=== PATIENT | female | born 1930 | race Caucasian/White ===

== ENCOUNTER 2018-11-26 22:00 | Inpatient (IN) | payer OTHER ==
--- NOTE | 2018-11-26 22:04 | PDOC ---
History of Present Illness - General Chief Complaint: Shortness of Breath Stated Complaint: COUGH Time Seen by Provider: 11/26/18 22:04 History Source: EMS, Care Home Records Exam Limitations: Dementia - History of Present Illness Initial Comments: 11/26/18 22:11 88 year old female residing at [facility] on the [place] with PMH HTN atrial fibrillation s/p PPM on Coumadin, pacer, CAD, DM, hypothyroidism, depression, dementia, vitamin D deficiency, intestinal obstruction, diverticulitis, GERD, left total knee replacement, left femoral neck fracture BIBA to ED for dry cough , hypoxia to 85%. Pt was placed on O2 and hypoxia improved to 91%. Past History - Past Medical History Allergies/Adverse Reactions: Allergies Allergy/AdvReac Type Severity Reaction Status Date / Time iodine Allergy Verified 11/26/18 22:02 shellfish derived Allergy Verified 11/26/18 22:02 dye Allergy Uncoded 11/26/18 22:02 hairdye Allergy Uncoded 11/26/18 22:02 Home Medications: Ambulatory Orders Acetaminophen [Tylenol] 650 mg PO BID PRN 11/26/18 Albuterol 2.5/Ipratropium 0.5 [Duoneb -] 1 neb IH QID PRN 11/26/18 Amiodarone HCl [Cordarone -] 200 mg PO DAILY 11/26/18 Calcium Carbonate/Vitamin D3 [Calcium 500 mg Chewable Tablet] 1 each PO DAILY Docusate Sodium [Colace] 200 mg PO HS 11/26/18 Ergocalciferol [Drisdol Oral Solution -] 8,000 units PO DAILY 11/26/18 Guaifenesin [Robitussin] 5 ml PO BID 11/26/18 Levothyroxine [Synthroid -] 125 mcg PO DAILY 11/26/18 Mirtazapine [Remeron -] 7.5 mg PO HS 11/26/18 Polyethylene Glycol 3350 [Miralax (For Daily Use) -] 17 gm PO DAILY 11/26/18 Warfarin Sodium [Coumadin] 3 mg PO HS 11/26/18 Cardiac Disorders: Yes (atrial fib, pacemaker) Dementia: Yes Thyroid Disease: Yes (hypothyroid) - Suicide/Smoking/Psychosocial Hx Smoking Status: No Smoking History: Never smoked Number of Cigarettes Smoked Daily: 0 Hx Alcohol Use: No Drug/Substance Use Hx: No Review of Systems - Review of Systems Able to Perform ROS?: No Comments:: 11/26/18 22:43 Pt is unable to provide history secondary to dementia. EMS and [facility] records indicated positive for cough. *Physical Exam - Physical Exam Comments: 11/26/18 22:43 Constitutional: thin, laying in stretcher. HEENT: head is normocephalic, atraumatic. EOMI. PERRLA. Neck: supple. Full ROM. Heart: regular rhythm. no murmurs, rubs or gallops. Lungs: decreased breath sounds at the left base. bilateral rhonchi. no wheezing. no stridor. no labored breathing. no accessory muscle use. Abdomen: soft, nontender. normal bowel sounds. no rebound, guarding, masses. Extremities: peripheral pulses intact. no lower extremity edema. Neurological: CN 2-12 grossly intact. moves all four extremities. Psych: awake. nonverbal. does not follow commands. Skin: no sacral ulcer. ED Treatment Course - LABORATORY CBC & Chemistry Diagram: 11/26/18 22:29 11/26/18 22:28 Medical Decision Making - Medical Decision Making 11/26/18 22:45 88 year old female with above PMH BIBA to ED for hypoxia and dry cough. Initial Vital Signs Temp Pulse Resp BP Pulse Ox 99.1 F 125 H 26 H 118/63 90 L 11/26/18 22:02 11/26/18 22:02 11/26/18 22:02 11/26/18 22:02 11/26/18 22:02 Febrile - oral. 100.1 rectal temperature. Tachycardic. Tachypneic. No hypotension. Hypoxia on room air. -Satting 95% on 4L O2. Labs ordered: CBC, CMP, VBG, lactate, troponin, blood cultures, UA/UC, BNP Imaging ordered: CXR Medications ordered: tylenol IV, normal saline bolus 1000 cc, duonebs EKG performed at 2259: rate 80, atrial sensed-ventricularly paced, left axis, no acute ST changes. 11/26/18 22:51 CXR shows increased density at left base. Medications ordered: Vancomycin, Zosyn 11/26/18 23:13 CBC WBC 24.3 K/mm3 (4.0-10.0) H 11/26/18 22:29 RBC 3.67 M/mm3 (3.60-5.2) 11/26/18 22:29 Hgb 11.8 GM/dL (10.7-15.3) 11/26/18 22:29 Hct 36.6 % (32.4-45.2) 11/26/18 22:29 MCV 99.9 fl (80-96) H 11/26/18 22:29 MCH 32.3 pg (25.7-33.7) 11/26/18 22: MCHC 32.3 g/dl (32.0-36.0) 11/26/18 22: RDW 13.3 % (11.6-15.6) 11/26/18 22:29 Plt Count 197 K/MM3 (134-434) D 11/26/18 22:29 MPV 9.7 fl (7.5-11.1) D 11/26/18 22:29 Absolute Neuts (auto) 21.0 K/mm3 (1.5-8.0) H 11/26/18 22:29 Neutrophils % 86.7 % (42.8-82.8) H 11/26/18 22:29 Lymphocytes % 6.5 % (8-40) L D 11/26/18 22:29 Monocytes % 5.7 % (3.8-10.2) 11/26/18 22: Eosinophils % 0.0 % (0-4.5) D 11/26/18 22: Basophils % 1.1 % (0-2.0) D 11/26/18 22: Nucleated RBC % 0 % (0-0) 11/26/18 22:29 Leukocytosis with left shift. No anemia. CMP Sodium 141 mmol/L (136-145) 11/26/18 22:28 Potassium 3.7 mmol/L (3.5-5.1) 11/26/18 22:28 Chloride 109 mmol/L (98-107) H 11/26/18 22:28 Carbon Dioxide 23 mmol/L (21-32) 11/26/18 22:28 Anion Gap 9 MMOL/L (8-16) 11/26/18 22:28 BUN 19 mg/dL (7-18) H 11/26/18 22:28 Creatinine 0.9 mg/dL (0.55-1.3) 11/26/18 22:28 Creat Clearance w eGFR 59.09 (>60) 11/26/18 22: Random Glucose 281 mg/dL (74-106) H 11/26/18 22:28 Calcium 8.4 mg/dL (8.5-10.1) L 11/26/18 22:28 Magnesium 2.2 mg/dL (1.8-2.4) 11/26/18 22: Total Bilirubin 0.3 mg/dL (0.2-1) 11/26/18 22: AST 14 U/L (15-37) L 11/26/18 22: ALT 20 U/L (13-61) 11/26/18 22: Alkaline Phosphatase 84 U/L (45-117) 11/26/18 22: Creatine Kinase 199 U/L (26-192) H 11/26/18 22: Troponin I < 0.02 ng/ml (0.00-0.05) 11/26/18: Total Protein 6.6 g/dl (6.4-8.2) 11/26/18: Albumin 2.7 g/dl (3.4-5.0) L 11/26/18: BNP 888. Lactic acidosis - 2.8 -Pt receiving IV fluids Urine Test Results Urine Color Yellow 11/26/18 22: Urine Appearance Cloudy 11/26/18: Urine pH 5.0 (5.0-8.0) 11/26/18: Ur Specific [place] 1.025 (1.010-1.035) 11/26/18 22: Urine Protein 1+ (NEGATIVE) H 11/26/18 22: Urine Glucose (UA) 2+ (NEGATIVE) H 11/26/18 22: Urine Ketones Trace (NEGATIVE) 11/26/18 22: Urine Blood 3+ (NEGATIVE) H 11/26/18 22: Urine Nitrite Positive (NEGATIVE) 11/26/18 22: Urine Bilirubin Negative (NEGATIVE) 11/26/18 22: Ur Leukocyte Esterase 1+ (NEGATIVE) H 11/26/18 22: WBC 5-10 -Vancomycin and Zosyn ordered Pt to be admitted for sepsis, pneumonia, lactic acidosis, UTI. *DC/Admit/Observation/Transfer Diagnosis at time of Disposition: Sepsis, Hypoxia, Lactic acidemia Leukocytosis Qualifiers: Leukocytosis type: unspecified Qualified Code(s): D72.829 - Elevated white blood cell count, unspecified Pneumonia Qualifiers: Pneumonia type: due to unspecified organism - Discharge Dispostion Condition at time of disposition: Guarded Decision to Admit order: Yes - Referrals - Patient Instructions - Post Discharge Activity
[2018-11-26] MEDS ORDERED: ACETAMINOPHEN 1000 MG/100 ML VIAL (NON FORMULARY) IVPB ONE (22:26)
[2018-11-26] MEDS ORDERED: ALBUTEROL SO4 2.5/IPRATROPIUM 0.5 INH SOL 3 ML VIAL.NEB. NEB ONE ×2 (22:26→22:29)
[2018-11-26] MEDS ORDERED: SODIUM CHLORIDE 0.9% 1000 ML INFUS.BAG IV ONE (22:26)
[2018-11-26] MEDS ORDERED: PIPERACILLIN/TAZOB 4.5 GM 4.5 GM in DEXTROSE 5%-WATER 100 ML IVPB ONE (22:29)
[2018-11-26] MEDS ORDERED: ACETAMINOPHEN INJECTION 100 ML IVPB ONE (22:29)
[2018-11-26] MEDS ORDERED: VANCOMYCIN 1 GM in D5W (PRE-DOCKED) 1,000 MG/250 ML IVPB ONE (22:29)
[2018-11-26 22:37] LABS: VENOUS PC02 36.1 mmHg (41-51); VENOUS PH 7.41 (7.31-7.41); VENOUS PO2 42.4 mmHg (30-40)
[2018-11-26] MEDS ORDERED: PIPERACILLIN/TAZOB 4.5 GM 4.5 GM/100 ML BAG IVPB ONE (22:39)
[2018-11-26 22:51] LABS: INR 1.81 (0.83-1.09); PROTHROMBIN TIME (PATIENT) 21.5 SEC (9.7-13.0)
[2018-11-26 22:54] LABS: ACTIVATED PTT 26.7 SECONDS (25.2-36.5)
[2018-11-26 23:05] LABS: BASO % 1.1 % (0-2.0); HEMATOCRIT 36.6 % (32.4-45.2); HEMOGLOBIN 11.8 GM/dL (10.7-15.3); LYMPH % 6.5 % (8-40); MCH 32.3 pg (25.7-33.7); MCHC 32.3 g/dl (32.0-36.0); MEAN CELL VOLUME 99.9 fl (80-96); MEAN PLT VOLUME 9.7 fl (7.5-11.1); MONO % 5.7 % (3.8-10.2); NEUT % 86.7 % (42.8-82.8); PLATELET COUNT 197 K/MM3 (134-434); RBC 3.67 M/mm3 (3.60-5.2); RDW 13.3 % (11.6-15.6)
[2018-11-26 23:05] LABS: ALBUMIN 2.7 g/dl (3.4-5.0); ALK PHOS 84 U/L (45-117); ANION GAP 9 MMOL/L (8-16); BILIRUBIN,TOTAL 0.3 mg/dL (0.2-1); BLOOD UREA NITROGEN 19 mg/dL (7-18); CALCIUM 8.4 mg/dL (8.5-10.1); CHLORIDE 109 mmol/L (98-107); CO2 23 mmol/L (21-32); CREATININE 0.9 mg/dL (0.55-1.3); GLUCOSE,RANDOM 281 mg/dL (74-106); MAGNESIUM 2.2 mg/dL (1.8-2.4); POTASSIUM 3.7 mmol/L (3.5-5.1); SGOT/AST 14 U/L (15-37); SGPT/ALT 20 U/L (13-61); SODIUM 141 mmol/L (136-145); TOT PROT 6.6 g/dl (6.4-8.2)
[2018-11-26 23:10] LABS: WHITE BLOOD COUNT 24.3 K/mm3 (4.0-10.0)
--- NOTE | 2018-11-26 23:14 | PDOC ---
Attending Attestation - HPI HPI: The patient is an 88 year old female, with a significant PMH of Afib (with pacemaker), CAD, dementia, hypothyroid, diabetes, intestinal obstruction due to diverticulitis (s/p colostomy placement and reversal), vitamin D deficiency, and GERD, who presents to the emergency department today BIBEMS from [facility] for cough, shortness of breath, and hypoxia.. As per EMS, patient was given a neb en route. ERA prior to arrival was 84. Patient is nonverbal at baseline. Patient was brought in for shortness of breath, crackles , and diffuse body warmth. Patient air room O2 is 91 at this time. Patient is DNR and DNI, confirmed by son at bedside. The patient denies chest pain, headache and dizziness. Denies fever, chills, nausea, vomit, diarrhea and constipation. Denies dysuria, frequency, urgency and hematuria. Allergies: Iodine, shellfish, dye, hair dye Past surgical history: PPM, Colostomy bag placement, colostomy bag reversal, and left total knee replacement Social history: No reported PCP: Dr. Lester Bowser 11/26/18 23:18 - Physicial Exam PE: GENERAL: +Hot to touch. +Nonverbal (baseline). HEAD: No signs of trauma EYES: PERRLA, EOMI, sclera anicteric, conjunctiva clear ENT: +Dry mucous membranes. Auricles normal inspection, hearing grossly normal, nares patent, oropharynx clear without exudates. NECK: Normal ROM, supple, no lymphadenopathy, JVD, or masses LUNGS: +Tachypnic. +Hypoxic. +Very coarse breath sounds bilaterally. +Crackles. No wheezes. HEART: +Tachycardic. Regular rhythm, normal S1 and S2, no murmurs, rubs or gallops ABDOMEN: Soft, nontender, normoactive bowel sounds. No guarding, no rebound. No masses EXTREMITIES: +Contracted lower extremities. Normal range of motion, no edema. No clubbing or cyanosis. No cords, erythema, or tenderness NEUROLOGICAL: Cranial nerves II through XII grossly intact. Normal speech, normal gait SKIN: Warm, Dry, normal turgor, no rashes or lesions noted. 11/26/18 23:19 - Medical Decision Making EXAM#: TYPE/EXAM: RESULT: [id number] RAD/CHEST X-RAY PORTABLE* Shortness of breath Impression: Questionable minimal left pleural effusion Reported By: Vasquez Walker MD 11/26/18 22:46 Documentation prepared by HOLLY Palmer, acting as emergency medical tech for Kylah Lee DO. 11/26/18 23:21 <Heather Lora - Last Filed: 11/26/18 23:21> - Resident Resident Name: Brisa Castelan - ED Attending Attestation I have performed the following: I have examined & evaluated the patient, The case was reviewed & discussed with the resident, I agree w/resident's findings & plan, Exceptions are as noted - Medical Decision Making 11/26/18 23:08 I, Dr. Kylah Lee DO, attest that this document has been prepared under my direction and personally reviewed by me in its entirety. I further attest, that it accurately reflects all work, treatment, procedures and medical decision -making performed by me. 11/26/18 23:09 a/p: 88yo female arrives hypoxic to 91%ra and sob/cough from [facility] [address] -pt is nonverbal at baseline -pt is a DNR/I, son at the bedside who confirms DNR/I -coarse bs -concern for pna -will start broad spectrum abx, xray, labs, ekg -will monitor and reassess -pt will need admission -PMD is Dr. Bowser 11/26/18 23:11 L sided infiltrate on xray elevated wbc pt with sepsis ivf hydration running abx ordered pt will need admission microblog sent to [facility] 11/27/18 00:06 case discussed with [facility] who accepts pt to service <Kylah Lee - Last Filed: 11/27/18 00:07> *DC/Admit/Observation/Transfer - Discharge Dispostion Decision to Admit order: Yes <Kylah Lee - Last Filed: 11/27/18 00:07> Diagnosis at time of Disposition: Sepsis, Leukocytosis, Pneumonia, Hypoxia - Discharge Dispostion Condition at time of disposition: Guarded - Referrals Referrals: Lester Bowser MD [Primary Care Provider] - - Patient Instructions - Post Discharge Activity Heart Score/ECG Review - ECG Intrepretation Comment:: 11/26/18 23:12 paced at 80, no acute findings <Kylah Lee - Last Filed: 11/27/18 00:07>
[2018-11-26] MEDS ORDERED: VANCOMYCIN 1 GRAM (PRE-DOCKED) 1,000 MG/250 ML BAG IVPB ONE (23:19)
[2018-11-26 23:47] LABS: URINE APPEARANCE Cloudy; URINE BILIRUBIN Negative (NEGATIVE); URINE COLOR Yellow; URINE GLUCOSE (UA) 2+ (NEGATIVE); URINE KETONE Trace (NEGATIVE); URINE LEUK ESTERASE 1+ (NEGATIVE); URINE NITRITE Positive (NEGATIVE); URINE PROTEIN 1+ (NEGATIVE); URINE UROBILINOGEN 0.2 mg/dL (0.2-1.0)
[2018-11-26 23:57] LABS: PLATELET ESTIMATE ADEQUATE
[2018-11-27] LABS: URINE BACTERIA MODERATE /hpf (NEGATIVE)
--- NOTE | 2018-11-27 00:06 | HP ---
CHIEF COMPLAINT: Sent from [place] for hypoxia PCP: Dr Lester Bowser HISTORY OF PRESENT ILLNESS: Pt nonresponsive. Information gathered from discussion with ED resident/ Attending as well as medical records. Pt is an 88 y/o lady who presents from [facility] with a significant past medical history of Afib (with pacemaker), CAD, dementia, hypothyroid, diabetes, intestinal obstruction due to diverticulitis (s/p colostomy placement and reversal), vitamin D deficiency, and GERD who presented to [facility] from [facility] after she was observed to desaturate on room air to 85% on room air. Patient was administered a nebulizer treatment en route to the ED. Patient is nonverbal at baseline. Upon initial presentation to the ED, ED staff noticed pt exhibited shortness of breath, crackles, and diffuse body warmth. Upon my examination, pt appeared in no acute distress and did not feel warm. Patient is reportedly DNR and DNI, ED staff confirmed at bedside with son. Allergies: Iodine, shellfish, dye, hair dye Past surgical history: PPM, Colostomy bag placement, colostomy bag reversal, and left total knee replacement PCP: Dr. Lseter Bowser ER course was notable for: (1) Vanc and Zosyn (2) Lactic Acid 2.8 (3) INR 1.81 HOME MEDICATIONS: Home Medications Medication Instructions Recorded Acetaminophen [Tylenol] 650 mg PO BID PRN 11/26/18 Albuterol 2.5/Ipratropium 0.5 1 neb IH QID PRN 11/26/18 [Duoneb -] Amiodarone HCl [Cordarone -] 200 mg PO DAILY 11/26/18 Calcium Carbonate/Vitamin D3 1 each PO DAILY 11/26/18 [Calcium 500 mg Chewable Tablet] Docusate Sodium [Colace] 200 mg PO HS 11/26/18 Ergocalciferol [Drisdol Oral 8,000 units PO DAILY 11/26/18 Solution -] Guaifenesin [Robitussin] 5 ml PO BID 11/26/18 Levothyroxine [Synthroid -] 125 mcg PO DAILY 11/26/18 Mirtazapine [Remeron -] 7.5 mg PO HS 11/26/18 Polyethylene Glycol 3350 [Miralax 17 gm PO DAILY 11/26/18 (For Daily Use) -] Warfarin Sodium [Coumadin] 3 mg PO HS 11/26/18 REVIEW OF SYSTEMS Unable to obtain PHYSICAL EXAMINATION Vital Signs - 24 hr 11/26/18 11/26/18 11/26/18 22:02 22:09 22:23 Temperature 99.1 F 100.1 F H Pulse Rate 125 H Pulse Rate [ Apical] Respiratory 26 H Rate Blood Pressure 118/63 O2 Sat by Pulse 90 L 92 L Oximetry (%) 11/26/18 22:39 Temperature Pulse Rate Pulse Rate [ 86 Apical] Respiratory 22 H Rate Blood Pressure O2 Sat by Pulse 95 Oximetry (%) GENERAL: Nonresponsive HEAD: Normal with no signs of trauma. LUNGS: Bibasilar rales HEART: Irregular, S1S2 ABDOMEN:Soft, No facial grimacing upon palpation. LOWER EXTREMITIES: Lower extremities contracted. No edema appreciated SKIN: No rashes or lesions appreciated Laboratory Results - last 24 hr 11/26/18 11/26/18 11/26/18 22:28 22:28 22:28 WBC RBC Hgb Hct MCV MCH MCHC RDW Plt Count MPV Absolute Neuts (auto) Neutrophils % Neutrophils % (Manual) Band Neutrophils % Lymphocytes % Lymphocytes % (Manual) Monocytes % Monocytes % (Manual) Eosinophils % Eosinophils % (Manual) Basophils % Basophils % (Manual) Nucleated RBC % Platelet Estimate PT with INR 21.50 H INR 1.81 H PTT (Actin FS) 26.7 VBG pH 7.41 POC VBG pCO2 36.1 L POC VBG pO2 42.4 H VBG HCO3 22.3 L VBG O2 Sat (Adiel) 76.1 VBG Base Excess -1.4 Sodium Potassium Chloride Carbon Dioxide Anion Gap BUN Creatinine Creat Clearance w eGFR Random Glucose Lactic Acid Calcium Magnesium Total Bilirubin AST ALT Alkaline Phosphatase Creatine Kinase Creatine Kinase Index CK-MB (CK-2) Troponin I B-Natriuretic Peptide Total Protein Albumin Urine Color Yellow Urine Appearance Cloudy Urine pH 5.0 Ur Specific [place] 1.025 Urine Protein 1+ H Urine Glucose (UA) 2+ H Urine Ketones Trace Urine Blood 3+ H Urine Nitrite Positive Urine Bilirubin Negative Urine Urobilinogen 0.2 Ur Leukocyte Esterase 1+ H Urine WBC (Auto) 5-10 Urine RBC (Auto) 5-10 U Epithel Cells (Auto) 2-5 Urine Bacteria (Auto) Moderate 11/26/18 11/26/18 11/26/18 22:28 22:28 22:28 WBC RBC Hgb Hct MCV MCH MCHC RDW Plt Count MPV Absolute Neuts (auto) Neutrophils % Neutrophils % (Manual) Band Neutrophils % Lymphocytes % Lymphocytes % (Manual) Monocytes % Monocytes % (Manual) Eosinophils % Eosinophils % (Manual) Basophils % Basophils % (Manual) Nucleated RBC % Platelet Estimate PT with INR INR PTT (Actin FS) VBG pH POC VBG pCO2 POC VBG pO2 VBG HCO3 VBG O2 Sat (Adiel) VBG Base Excess Sodium 141 Potassium 3.7 Chloride 109 H Carbon Dioxide 23 Anion Gap 9 BUN 19 H Creatinine 0.9 Creat Clearance w eGFR 59.09 Random Glucose 281 H Lactic Acid 2.8 H* Calcium 8.4 L Magnesium 2.2 Total Bilirubin 0.3 AST 14 L ALT 20 Alkaline Phosphatase 84 Creatine Kinase 199 H Creatine Kinase Index 1.0 CK-MB (CK-2) 2.1 Troponin I < 0.02 B-Natriuretic Peptide 884.4 H Total Protein 6.6 Albumin 2.7 L Urine Color Urine Appearance Urine pH Ur Specific [place] Urine Protein Urine Glucose (UA) Urine Ketones Urine Blood Urine Nitrite Urine Bilirubin Urine Urobilinogen Ur Leukocyte Esterase Urine WBC (Auto) Urine RBC (Auto) U Epithel Cells (Auto) Urine Bacteria (Auto) 11/26/18 22:29 WBC 24.3 H RBC 3.67 Hgb 11.8 Hct 36.6 MCV 99.9 H MCH 32.3 MCHC 32.3 RDW 13.3 Plt Count 197 D MPV 9.7 D Absolute Neuts (auto) 21.0 H Neutrophils % 86.7 H Neutrophils % (Manual) 76.0 Band Neutrophils % 10.0 Lymphocytes % 6.5 L D Lymphocytes % (Manual) 10.0 Monocytes % 5.7 Monocytes % (Manual) 1 L Eosinophils % 0.0 D Eosinophils % (Manual) 0.0 Basophils % 1.1 D Basophils % (Manual) 0.0 Nucleated RBC % 0 Platelet Estimate Adequate PT with INR INR PTT (Actin FS) VBG pH POC VBG pCO2 POC VBG pO2 VBG HCO3 VBG O2 Sat (Adiel) VBG Base Excess Sodium Potassium Chloride Carbon Dioxide Anion Gap BUN Creatinine Creat Clearance w eGFR Random Glucose Lactic Acid Calcium Magnesium Total Bilirubin AST ALT Alkaline Phosphatase Creatine Kinase Creatine Kinase Index CK-MB (CK-2) Troponin I B-Natriuretic Peptide Total Protein Albumin Urine Color Urine Appearance Urine pH Ur Specific [place] Urine Protein Urine Glucose (UA) Urine Ketones Urine Blood Urine Nitrite Urine Bilirubin Urine Urobilinogen Ur Leukocyte Esterase Urine WBC (Auto) Urine RBC (Auto) U Epithel Cells (Auto) Urine Bacteria (Auto) ASSESSMENT/PLAN: Pt is an 88 y/o lady who presents from [facility] with a significant past medical history of Afib (with pacemaker), CAD, dementia, hypothyroid, diabetes, intestinal obstruction due to diverticulitis (s/p colostomy placement and reversal), vitamin D deficiency, and GERD who presented to [facility] from [facility] after she was observed to desaturate on room air to 85% on room air.' #Sepsis 2/2 HCAP--> Left sided infiltrate -Received Vanc/Zosyn in ED. Will continue empiric antibiotic coverage with Vanc 1 GM QD and Zosyn 4.5 Q6H until blood/urine cultures return -Urine Legionella/ Urine Strep Pneumo -F/u Lactic Acid. 1st LA level 2.8. Repeat is 2.5. Will continue to trend. -ID Consult -I.V Steroids Solu-Medrol 40 Q8H -Procalcitonin level #Atrial Fibrillation -Tele -Cardio Consult -Pt reportedly on Amiodorone. Confirmed with [place] medication list. Will continue. -INR in am. Continue Coumadin as most recent INR Subtherapeutic 1.81 #Dementia C/w Mirtazapine 15 HS #Hypothyroidism C/w Levothyroxine #Diabetes Per [place] record, no diabetic meds listed. Will place on ISS #FEN NS@42 cc/hr Monitor Electrolytes NPO #DVT ppx: Coumadin #Dispo: Tele Visit type - Emergency Visit Emergency Visit: Yes ED Registration Date: 11/26/18 Care time: The patient presented to the Emergency Department on the above date and was hospitalized for further evaluation of their emergent condition. - New Patient This patient is new to me today: Yes Date on this admission: 11/27/18 - Critical Care Critical Care patient: No
[2018-11-27] MEDS ORDERED: methylPREDNISolone NA SUCC 40 MG/1 ML VIAL ONE (02:06)
[2018-11-27] MEDS: methylPREDNISolone NA SUCC 40 MG/1 ML VIAL IVPUSH SCH ×2 (02:07→10:48)
--- NOTE | 2018-11-27 02:34 | PN ---
Teaching Attending Note Name of Resident: Hussein Brownlee ATTENDING PHYSICIAN STATEMENT I saw and evaluated the patient. I reviewed the resident's note and discussed the case with the resident. I agree with the resident's findings and plan as documented. SUBJECTIVE: The patient is an 88 year old female, with a significant PMH of Afib (with pacemaker), CAD, dementia, hypothyroid, diabetes, intestinal obstruction due to diverticulitis (s/p colostomy placement and reversal), vitamin D deficiency, and GERD, who presents to the emergency department today BIBEMS from [facility] for cough, shortness of breath, and hypoxia.. As per EMS, patient was given a neb en route. ERA prior to arrival was 84. Patient is nonverbal at baseline. Patient was brought in for shortness of breath, crackles , and diffuse body warmth. Patient air room O2 is 91 at this time. Patient is DNR and DNI, confirmed by son at bedside. The patient denies chest pain, headache and dizziness. Denies fever, chills, nausea, vomit, diarrhea and constipation. Denies dysuria, frequency, urgency and hematuria. OBJECTIVE: Alert, nonverbal Vital Signs Period Temp Pulse Resp BP Sys/[place] Pulse Ox Last 24 Hr 99.1 F-100.1 F 81-125 18-26 116-118/41-63 90-95 HEENT: No Jaundice, eye redness or discharge, PERRLA, EOMI. Normocephalic, atraumatic. External ears are normal and hearing is grossly intact. No nasal discharge. Neck: Supple, nontender. No palpable adenopathy or thyromegaly. No JVD Chest: Good effort. Clear to auscultation and percussion. Heart: Tachycardia. No S3, rub or murmur Abdomen: Not distended, soft, nontender and no HSM. No rebound or guarding. Normal bowel sounds. Ext: Peripheral pulses intact. No leg edema. Skin: Warm and dry. No petechiae, rash or ecchymosis. Neuro: Alert. Nonverbal. CN 2-12 grossly intact. Sensation grossly intact in all four extremities; contracted lower extermities. Psych: Appropriate mood and affect. Good insight. Current Medications Generic Name Dose Route Start Last Admin Trade Name Freq PRN Reason Stop Dose Admin Piperacillin Sod/Tazobactam 100 mls @ 200 mls/hr 11/28/18 09:00 Sod 4.5 gm/ Dextrose IVPB Q6H-IV XENIA Protocol Vancomycin HCl 1 gm in 200 mls @ 200 mls/hr 11/28/18 22:00 Vancomycin 1 Gm Premix - IVPB HS XENIA Protocol Piperacillin Sod/Tazobactam 100 mls @ 200 mls/hr 11/27/18 09:00 Sod 4.5 gm/ Dextrose IVPB 11/28/18 03:29 Q6H-IV XENIA Protocol Vancomycin HCl 1 gm in 200 mls @ 133.333 mls/hr 11/27/18 22:00 Vancomycin 1 Gm Premix - IVPB 11/27/18 23:29 ONCE ONE Protocol Methylprednisolone Sodium Succinate 40 mg 11/27/18 02:00 11/27/18 02:07 Solu-Medrol - IVPUSH 40 mg Q8H-IV XENIA Administration Home Medications Medication Instructions Recorded Acetaminophen [Tylenol] 650 mg PO BID PRN 11/26/18 Albuterol 2.5/Ipratropium 0.5 1 neb IH QID PRN 11/26/18 [Duoneb -] Amiodarone HCl [Cordarone -] 200 mg PO DAILY 11/26/18 Calcium Carbonate/Vitamin D3 1 each PO DAILY 11/26/18 [Calcium 500 mg Chewable Tablet] Docusate Sodium [Colace] 200 mg PO HS 11/26/18 Ergocalciferol [Drisdol Oral 8,000 units PO DAILY 11/26/18 Solution -] Guaifenesin [Robitussin] 5 ml PO BID 11/26/18 Levothyroxine [Synthroid -] 125 mcg PO DAILY 11/26/18 Mirtazapine [Remeron -] 7.5 mg PO HS 11/26/18 Polyethylene Glycol 3350 [Miralax 17 gm PO DAILY 11/26/18 (For Daily Use) -] Warfarin Sodium [Coumadin] 3 mg PO HS 11/26/18 Abnormal Lab Results 11/26/18 11/26/18 11/26/18 22:28 22:28 22:28 WBC MCV Absolute Neuts (auto) Neutrophils % Lymphocytes % Monocytes % (Manual) PT with INR 21.50 H INR 1.81 H POC VBG pCO2 36.1 L POC VBG pO2 42.4 H VBG HCO3 22.3 L Chloride BUN Random Glucose Lactic Acid Calcium AST Creatine Kinase B-Natriuretic Peptide Albumin Urine Protein 1+ H Urine Glucose (UA) 2+ H Urine Blood 3+ H Ur Leukocyte Esterase 1+ H 11/26/18 11/26/18 11/26/18 22:28 22:28 22:28 WBC MCV Absolute Neuts (auto) Neutrophils % Lymphocytes % Monocytes % (Manual) PT with INR INR POC VBG pCO2 POC VBG pO2 VBG HCO3 Chloride 109 H BUN 19 H Random Glucose 281 H Lactic Acid 2.8 H* Calcium 8.4 L AST 14 L Creatine Kinase 199 H B-Natriuretic Peptide 884.4 H Albumin 2.7 L Urine Protein Urine Glucose (UA) Urine Blood Ur Leukocyte Esterase 11/26/18 11/27/18 22:29 01:50 WBC 24.3 H MCV 99.9 H Absolute Neuts (auto) 21.0 H Neutrophils % 86.7 H Lymphocytes % 6.5 L D Monocytes % (Manual) 1 L PT with INR INR POC VBG pCO2 POC VBG pO2 VBG HCO3 Chloride BUN Random Glucose Lactic Acid 2.5 H* Calcium AST Creatine Kinase B-Natriuretic Peptide Albumin Urine Protein Urine Glucose (UA) Urine Blood Ur Leukocyte Esterase ASSESSMENT AND PLAN: 1. Sepsis due to pneumonia (HCAP) and Acute hypoxic respiratory failure - CXR shows possible LLL infiltrate, elevation of left hemidiaphragm and pleural effusion. Sepsis work up done and being treatd with IV vancomycin, zosyn and solumedrol. Continue oxygen support and get urine legionella antigen. AMS is likely due to toxic metabolic encephalopathy. Continue IV NS and trend lactic acid. EKG shows a paced rhythm. Will get kidney/bladder sonogram to investigate hematuria in view of coumadin therapy 2. Hypoalbuminemia - Possibly due to combined effects of malnutrition and inflammation associated with comorbid chronic conditions. Will ensure adequate dietary protein intake and also consult manufacturing inspector. 3. DVT prophylaxis - On coumadin for Afib 4. Advance directives - DNR/DNI
[2018-11-27] MEDS ORDERED: SODIUM CHLORIDE 1,000 ML IV SCH ×2 (03:00→14:23)
[2018-11-27] MEDS ORDERED: LEVOTHYROXINE NA 125 MCG TABLET (FP) PO SCH (07:00)
[2018-11-27] MEDS ORDERED: PIPERACILLIN/TAZOB 4.5 GM 4.5 GM in DEXTROSE 5%-WATER 100 ML IVPB SCH ×2 (09:00→15:00)
[2018-11-27 09:37] LABS: INR 2.04 (0.83-1.09); PROTHROMBIN TIME (PATIENT) 24.3 SEC (9.7-13.0)
[2018-11-27] MEDS ORDERED: ERGOCALCIFEROL 8,000 UNITS/ML DROPSBTL PO SCH (10:00)
[2018-11-27] MEDS ORDERED: CALCIUM 500MG/VIT-D 200 UNITS COMBO TABLET (FP) PO SCH (10:00)
[2018-11-27] MEDS ORDERED: POLYETHYLENE GLYCOL 3350 119 GM BTL PO SCH (10:00)
[2018-11-27] MEDS ORDERED: guaiFENesin 200 MG/10 ML 10 ML UNIT-DOSE CUPS PO SCH (10:00)
[2018-11-27] MEDS ORDERED: AMIODARONE HCL 200 MG TABLET (FP) PO SCH (10:00)
[2018-11-27] MEDS ORDERED: PIPERACILLIN/TAZOBACTAM 4.5 GM VIAL IVPB ONE (10:06)
[2018-11-27] MEDS ORDERED: DEXTROSE 5%-WATER 100 ML IVPB ONE (10:06)
--- NOTE | 2018-11-27 10:20 | EKG ---
Test Reason : Blood Pressure : / mmHG Vent. Rate : 080 BPM Atrial Rate : 080 BPM P-R Int : 142 ms QRS Dur : 180 ms QT Int : 482 ms P-R-T Axes : 059 -73 095 degrees QTc Int : 555 ms Atrial-sensed ventricular-paced rhythm ABNORMAL ECG WHEN COMPARED WITH ECG OF 06-OCT-2012 17:54, ELECTRONIC VENTRICULAR PACEMAKER HAS REPLACED SINUS RHYTHM Confirmed by LICO ROLDAN, ALLEN ([id number]) on 11/27/2018 10:20:36 AM Referred By: Confirmed By:ALLEN BARFIELD MD
--- NOTE | 2018-11-27 10:24 | CON.CARD ---
Consult Consult Specialty:: Cardiology Referred by:: Hospitalist Medicine Reason for Consultation:: Dyspnea - History of Present Illness Chief Complaint: Dyspnea History of Present Illness: The patient is an 88 year old nonverbal female, with a significant PMH of Afib ( with pacemaker), CAD, dementia, hypothyroid, diabetes, intestinal obstruction due to diverticulitis (s/p colostomy placement and reversal), vitamin D deficiency, and GERD, who presents to the emergency department today BIBEMS from [facility] for cough, shortness of breath, and hypoxia.. As per EMS, patient was given a neb en route. ERA prior to arrival saO2 was 84%. Patient is nonverbal at baseline. Patient was brought in for shortness of breath, crackles, and diffuse body warmth. Patient air room O2 is 91 at this time. Patient is DNR and DNI. - History Source History Provided By: Medical Record Limitations to Obtaining History: Dementia - Past Medical History ...: No - Alcohol/Substance Use Hx Alcohol Use: No - Smoking History Smoking history: Never smoked Have you smoked in the past 12 months: No Aproximately how many cigarettes per day: 0 Home Medications - Allergies Allergies/Adverse Reactions: Allergies Allergy/AdvReac Type Severity Reaction Status Date / Time iodine Allergy Verified 11/26/18 22:02 shellfish derived Allergy Verified 11/26/18 22:02 dye Allergy Uncoded 11/26/18 22:02 hairdye Allergy Uncoded 11/26/18 22:02 - Home Medications Home Medications: Ambulatory Orders Acetaminophen [Tylenol] 650 mg PO BID PRN 11/26/18 Albuterol 2.5/Ipratropium 0.5 [Duoneb -] 1 neb IH QID PRN 11/26/18 Amiodarone HCl [Cordarone -] 200 mg PO DAILY 11/26/18 Calcium Carbonate/Vitamin D3 [Calcium 500 mg Chewable Tablet] 1 each PO DAILY Docusate Sodium [Colace] 200 mg PO HS 11/26/18 Ergocalciferol [Drisdol Oral Solution -] 8,000 units PO DAILY 11/26/18 Guaifenesin [Robitussin] 5 ml PO BID 11/26/18 Levothyroxine [Synthroid -] 125 mcg PO DAILY 11/26/18 Mirtazapine [Remeron -] 7.5 mg PO HS 11/26/18 Polyethylene Glycol 3350 [Miralax (For Daily Use) -] 17 gm PO DAILY 11/26/18 Warfarin Sodium [Coumadin] 3 mg PO HS 11/26/18 Review of Systems Unable to obtain ROS, reason: Demented Vital Signs: Vital Signs Temperature 98.7 F 11/27/18 04:05 Pulse Rate 67 11/27/18 04:05 Respiratory Rate 18 11/27/18 04:05 Blood Pressure 132/55 L 11/27/18 04:05 O2 Sat by Pulse Oximetry (%) 96 11/27/18 09:00 Constitutional: Yes: No Distress, Calm Neck: Yes: Supple Respiratory: Yes: Regular, Diminished, On Nasal O2 Gastrointestinal: Yes: Normal Bowel Sounds, Soft Cardiovascular: Yes: Regular Rate and Rhythm JVD: No Carotid Bruit: No Heart Sounds: Yes: S1, S2 Edema: No - Other Data Labs, Other Data: CBC, BMP 11/26/18 22:29 11/26/18 22:28 INR, PTT INR 2.04 (0.83-1.09) H 11/27/18 05:30 Troponin, BNP 11/26/18 11/26/18 22:28 22:28 Troponin I < 0.02 B-Natriuretic Peptide 884.4 H Troponin, BNP 11/26/18 11/26/18 22:28 22:28 Troponin I < 0.02 B-Natriuretic Peptide 884.4 H A-sensed v-paced @ 80 Imaging - Results Chest X-ray: Report Reviewed (? 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 OF ANTICOAGULANTS (4) Hypoxia Code(s): R09.02 - HYPOXEMIA (5) Pneumonia Code(s): J18.9 - PNEUMONIA, UNSPECIFIED ORGANISM Qualifiers: Pneumonia type: due to unspecified organism (6) Sepsis Code(s): A41.9 - SEPSIS, UNSPECIFIED ORGANISM (7) Hypothyroidism Code(s): E03.9 - HYPOTHYROIDISM, UNSPECIFIED Qualifiers: Hypothyroidism type: unspecified Qualified Code(s): E03.9 - Hypothyroidism , unspecified (8) Sick sinus syndrome Code(s): I49.5 - SICK SINUS SYNDROME (9) Leukocytosis Code(s): D72.829 - ELEVATED WHITE BLOOD CELL COUNT, UNSPECIFIED Qualifiers: Leukocytosis type: unspecified Qualified Code(s): D72.829 - Elevated white blood cell count, unspecified Assessment/Plan 1. Acute hypoxic respiratory failure 2. HCAP 3. Toxic metabolic encephelopathy with underlying dementia 4. PAF, sss s/ PPM on coumadin with therapeutic INR 5. Hypothyroidism 6. Lactic acidosis P:1. Empiric abx course per C&S, BD, O2 to maintain saO2>90%, lactate downtrending 2. Amiodarone 200 qd, coumadin per INR 3. Thank you for consultative opportunity, d/c telemetry
--- NOTE | 2018-11-27 14:08 | PN ---
Physical Exam: SUBJECTIVE: Patient seen and examined OBJECTIVE: Vital Signs Period Temp Pulse Resp BP Sys/[place] Pulse Ox Last 24 Hr 98.7 F-100.1 F 67-125 18-26 100-132/41-63 90-97 GENERAL: The patient is awake, alert, and fully oriented, in no acute distress. HEAD: Normal with no signs of trauma. EYES: PERRL, extraocular movements intact, sclera anicteric, conjunctiva clear. No ptosis. ENT: Ears normal, nares patent, oropharynx clear without exudates, moist mucous membranes. NECK: Trachea midline, full range of motion, supple. LUNGS: Breath sounds equal, clear to auscultation bilaterally, no wheezes, no crackles, no accessory muscle use. HEART: Regular rate and rhythm, S1, S2 without murmur, rub or gallop. ABDOMEN: Soft, nontender, nondistended, normoactive bowel sounds, no guarding, no rebound, no hepatosplenomegaly, no masses. EXTREMITIES: 2+ pulses, warm, well-perfused, no edema. NEUROLOGICAL: Normal speech, gait not observed. PSYCH: Normal mood, normal affect. SKIN: Warm, dry, normal turgor, no rashes or lesions noted Laboratory Results - last 24 hr 11/26/18 11/26/18 11/26/18 22:28 22:28 22:28 WBC RBC Hgb Hct MCV MCH MCHC RDW Plt Count MPV Absolute Neuts (auto) Neutrophils % Neutrophils % (Manual) Band Neutrophils % Lymphocytes % Lymphocytes % (Manual) Monocytes % Monocytes % (Manual) Eosinophils % Eosinophils % (Manual) Basophils % Basophils % (Manual) Nucleated RBC % Platelet Estimate PT with INR 21.50 H INR 1.81 H PTT (Actin FS) 26.7 VBG pH 7.41 POC VBG pCO2 36.1 L POC VBG pO2 42.4 H VBG HCO3 22.3 L VBG O2 Sat (Adiel) 76.1 VBG Base Excess -1.4 Sodium Potassium Chloride Carbon Dioxide Anion Gap BUN Creatinine Creat Clearance w eGFR Random Glucose Lactic Acid Calcium Magnesium Total Bilirubin AST ALT Alkaline Phosphatase Creatine Kinase Creatine Kinase Index CK-MB (CK-2) Troponin I B-Natriuretic Peptide Total Protein Albumin Urine Color Yellow Urine Appearance Cloudy Urine pH 5.0 Ur Specific [place] 1.025 Urine Protein 1+ H Urine Glucose (UA) 2+ H Urine Ketones Trace Urine Blood 3+ H Urine Nitrite Positive Urine Bilirubin Negative Urine Urobilinogen 0.2 Ur Leukocyte Esterase 1+ H Urine WBC (Auto) 5-10 Urine RBC (Auto) 5-10 U Epithel Cells (Auto) 2-5 Urine Bacteria (Auto) Moderate 11/26/18 11/26/18 11/26/18 22:28 22:28 22:28 WBC RBC Hgb Hct MCV MCH MCHC RDW Plt Count MPV Absolute Neuts (auto) Neutrophils % Neutrophils % (Manual) Band Neutrophils % Lymphocytes % Lymphocytes % (Manual) Monocytes % Monocytes % (Manual) Eosinophils % Eosinophils % (Manual) Basophils % Basophils % (Manual) Nucleated RBC % Platelet Estimate PT with INR INR PTT (Actin FS) VBG pH POC VBG pCO2 POC VBG pO2 VBG HCO3 VBG O2 Sat (Adiel) VBG Base Excess Sodium 141 Potassium 3.7 Chloride 109 H Carbon Dioxide 23 Anion Gap 9 BUN 19 H Creatinine 0.9 Creat Clearance w eGFR 59.09 Random Glucose 281 H Lactic Acid 2.8 H* Calcium 8.4 L Magnesium 2.2 Total Bilirubin 0.3 AST 14 L ALT 20 Alkaline Phosphatase 84 Creatine Kinase 199 H Creatine Kinase Index 1.0 CK-MB (CK-2) 2.1 Troponin I < 0.02 B-Natriuretic Peptide 884.4 H Total Protein 6.6 Albumin 2.7 L Urine Color Urine Appearance Urine pH Ur Specific [place] Urine Protein Urine Glucose (UA) Urine Ketones Urine Blood Urine Nitrite Urine Bilirubin Urine Urobilinogen Ur Leukocyte Esterase Urine WBC (Auto) Urine RBC (Auto) U Epithel Cells (Auto) Urine Bacteria (Auto) 11/26/18 11/27/18 11/27/18 22:29 01:50 05:30 WBC 24.3 H RBC 3.67 Hgb 11.8 Hct 36.6 MCV 99.9 H MCH 32.3 MCHC 32.3 RDW 13.3 Plt Count 197 D MPV 9.7 D Absolute Neuts (auto) 21.0 H Neutrophils % 86.7 H Neutrophils % (Manual) 76.0 Band Neutrophils % 10.0 Lymphocytes % 6.5 L D Lymphocytes % (Manual) 10.0 Monocytes % 5.7 Monocytes % (Manual) 1 L Eosinophils % 0.0 D Eosinophils % (Manual) 0.0 Basophils % 1.1 D Basophils % (Manual) 0.0 Nucleated RBC % 0 Platelet Estimate Adequate PT with INR 24.30 H INR 2.04 H PTT (Actin FS) VBG pH POC VBG pCO2 POC VBG pO2 VBG HCO3 VBG O2 Sat (Adiel) VBG Base Excess Sodium Potassium Chloride Carbon Dioxide Anion Gap BUN Creatinine Creat Clearance w eGFR Random Glucose Lactic Acid 2.5 H* Calcium Magnesium Total Bilirubin AST ALT Alkaline Phosphatase Creatine Kinase Creatine Kinase Index CK-MB (CK-2) Troponin I B-Natriuretic Peptide Total Protein Albumin Urine Color Urine Appearance Urine pH Ur Specific [place] Urine Protein Urine Glucose (UA) Urine Ketones Urine Blood Urine Nitrite Urine Bilirubin Urine Urobilinogen Ur Leukocyte Esterase Urine WBC (Auto) Urine RBC (Auto) U Epithel Cells (Auto) Urine Bacteria (Auto) 11/27/18 11/27/18 05:30 05:30 WBC RBC Hgb Hct MCV MCH MCHC RDW Plt Count MPV Absolute Neuts (auto) Neutrophils % Neutrophils % (Manual) Band Neutrophils % Lymphocytes % Lymphocytes % (Manual) Monocytes % Monocytes % (Manual) Eosinophils % Eosinophils % (Manual) Basophils % Basophils % (Manual) Nucleated RBC % Platelet Estimate PT with INR INR PTT (Actin FS) 38.3 H VBG pH POC VBG pCO2 POC VBG pO2 VBG HCO3 VBG O2 Sat (Adiel) VBG Base Excess Sodium Potassium Chloride Carbon Dioxide Anion Gap BUN Creatinine Creat Clearance w eGFR Random Glucose Lactic Acid 2.4 H* Calcium Magnesium Total Bilirubin AST ALT Alkaline Phosphatase Creatine Kinase Creatine Kinase Index CK-MB (CK-2) Troponin I B-Natriuretic Peptide Total Protein Albumin Urine Color Urine Appearance Urine pH Ur Specific [place] Urine Protein Urine Glucose (UA) Urine Ketones Urine Blood Urine Nitrite Urine Bilirubin Urine Urobilinogen Ur Leukocyte Esterase Urine WBC (Auto) Urine RBC (Auto) U Epithel Cells (Auto) Urine Bacteria (Auto) Active Medications Home Medications Medication Instructions Recorded Acetaminophen [Tylenol] 650 mg PO BID PRN 11/26/18 Albuterol 2.5/Ipratropium 0.5 1 neb IH QID PRN 11/26/18 [Duoneb -] Amiodarone HCl [Cordarone -] 200 mg PO DAILY 11/26/18 Calcium Carbonate/Vitamin D3 1 each PO DAILY 11/26/18 [Calcium 500 mg Chewable Tablet] Ergocalciferol [Drisdol Oral 8,000 units PO DAILY 11/26/18 Solution -] Levothyroxine [Synthroid -] 125 mcg PO DAILY 11/26/18 Mirtazapine [Remeron -] 7.5 mg PO HS 11/26/18 Polyethylene Glycol 3350 [Miralax 17 gm PO Q2D 11/26/18 (For Daily Use) -] Warfarin Sodium [Coumadin] 3 mg PO HS 11/26/18 Current Medications Amiodarone HCl (Cordarone -) 200 mg PO DAILY [facility] Last Admin: 11/28/18 09:39 Dose: 200 mg Calcium Carbonate/Cholecalciferol (Os-[place] 500+D -) 1 tab PO DAILY [facility] Last Admin: 11/28/18 09:39 Dose: 1 tab Docusate Sodium (Colace -) 200 mg PO [facility] Last Admin: 11/27/18 21:08 Dose: 200 mg Ergocalciferol (Drisdol Oral Solution -) 8,000 units PO DAILY [facility] Guaifenesin (Robitussin -) 5 ml PO BID [facility] Last Admin: 11/28/18 09:41 Dose: 5 ml Piperacillin Sod/Tazobactam (Sod 3.375 gm/ Dextrose) 50 mls @ 100 mls/hr IVPB Q8H-IV XENIA; Protocol Last Admin: 11/28/18 10:15 Dose: 100 mls/hr Sodium Chloride (Normal Saline -) 1,000 mls @ 60 mls/hr IV ASDIR [facility] Last Admin: 11/28/18 10:17 Dose: 60 mls/hr Levothyroxine Sodium (Synthroid -) 125 mcg PO DAILY@0700 [facility] Last Admin: 11/28/18 06:36 Dose: 125 mcg Mirtazapine (Remeron -) 7.5 mg PO HS [facility] Last Admin: 11/27/18 21:08 Dose: 7.5 mg Polyethylene Glycol (Miralax (For Daily Use) -) 17 gm PO DAILY [facility] Last Admin: 11/28/18 09:40 Dose: 17 gm Warfarin Sodium (Coumadin -) 3 mg PO DAILY@1800 [facility] Last Admin: 11/27/18 18:43 Dose: 3 mg ASSESSMENT/PLAN:
--- NOTE | 2018-11-27 15:39 | CON.ID ---
Consult Consult Specialty:: difficulty breathing Referred by:: hosptalist Reason for Consultation:: hypoxia - History of Present Illness Chief Complaint: sob History of Present Illness: 88 y/o lady who presents from [facility] with a significant past medical history of Afib , CAD, dementia, hypothyroid, diabetes, intestinal obstruction due to diverticulitis vitamin D deficiency, and GERD was send here because the patient was desaturating patient in the ed was also sob currently patient is stable and breathing ok patient did receive neb treatment and stabilized patient on work up was spiking fevers and also comes in with very high wbc w - History Source History Provided By: Medical Record Limitations to Obtaining History: Clinical Condition - Past Medical History ...: No - Alcohol/Substance Use Hx Alcohol Use: No - Smoking History Smoking history: Never smoked Have you smoked in the past 12 months: No Aproximately how many cigarettes per day: 0 Home Medications - Allergies Allergies/Adverse Reactions: Allergies Allergy/AdvReac Type Severity Reaction Status Date / Time iodine Allergy Verified 11/26/18 22:02 shellfish derived Allergy Verified 11/26/18 22:02 dye Allergy Uncoded 11/26/18 22:02 hairdye Allergy Uncoded 11/26/18 22:02 - Home Medications Home Medications: Ambulatory Orders Acetaminophen [Tylenol] 650 mg PO BID PRN 11/26/18 Albuterol 2.5/Ipratropium 0.5 [Duoneb -] 1 neb IH QID PRN 11/26/18 Amiodarone HCl [Cordarone -] 200 mg PO DAILY 11/26/18 Calcium Carbonate/Vitamin D3 [Calcium 500 mg Chewable Tablet] 1 each PO DAILY Ergocalciferol [Drisdol Oral Solution -] 8,000 units PO DAILY 11/26/18 Levothyroxine [Synthroid -] 125 mcg PO DAILY 11/26/18 Mirtazapine [Remeron -] 7.5 mg PO HS 11/26/18 Polyethylene Glycol 3350 [Miralax (For Daily Use) -] 17 gm PO Q2D 11/26/18 Warfarin Sodium [Coumadin] 3 mg PO HS 11/26/18 Review of Systems Unable to obtain ROS, reason: unable to obtain Physical Exam Vital Signs: Vital Signs Temperature 98.7 F 11/27/18 04:05 Pulse Rate 67 11/27/18 04:05 Respiratory Rate 18 11/27/18 04:05 Blood Pressure 132/55 L 11/27/18 04:05 O2 Sat by Pulse Oximetry (%) 96 11/27/18 09:00 Constitutional: Yes: Calm, Other Neck: Yes: Supple Cardiovascular: Yes: Tachycardia, Pulse Irregular Respiratory: Yes: On Nasal O2, Poor Air Entry, Rhonchi, Other (crackles) Gastrointestinal: Yes: Normal Bowel Sounds, Soft Musculoskeletal: Yes: WNL Extremities: Yes: WNL Neurological: Yes: Alert, Confusion, Other Labs: CBC, BMP 11/26/18 22:29 11/26/18 22:28 Imaging - Results Chest X-ray: Report Reviewed, Image Reviewed Cat Scan: Report Reviewed, Image Reviewed Assessment/Plan Problem List - Problems (1) Paroxysmal atrial fibrillation Code(s): I48.0 - PAROXYSMAL ATRIAL FIBRILLATION (2) Pacemaker Code(s): Z95.0 - PRESENCE OF CARDIAC PACEMAKER (3) Chronic anticoagulation Code(s): Z79.01 - PRISON (CURRENT) USE OF ANTICOAGULANTS (4) Hypoxia Code(s): R09.02 - HYPOXEMIA (5) Pneumonia Code(s): J18.9 - PNEUMONIA, UNSPECIFIED ORGANISM Qualifiers: Pneumonia type: due to unspecified organism (6) Sepsis Code(s): A41.9 - SEPSIS, UNSPECIFIED ORGANISM (7) Hypothyroidism Code(s): E03.9 - HYPOTHYROIDISM, UNSPECIFIED Qualifiers: Hypothyroidism type: unspecified Qualified Code(s): E03.9 - Hypothyroidism , unspecified (8) Sick sinus syndrome Code(s): I49.5 - SICK SINUS SYNDROME (9) Leukocytosis Code(s): D72.829 - ELEVATED WHITE BLOOD CELL COUNT, UNSPECIFIED Qualifiers: Leukocytosis type: unspecified Qualified Code(s): D72.829 - Elevated white blood cell count, unspecified Assessment/Plan 1. Acute hypoxic respiratory failure 2. HCAP 3. Toxic metabolic encephelopathy with underlying dementia 4. PAF, sss s/ PPM on coumadin with therapeutic INR 5. Hypothyroidism 6. Lactic acidosis plan will start patient on zosyn await for all cx report rest as per the team rsp support close watch
--- NOTE | 2018-11-27 15:43 | PN ---
Teaching Attending Note Name of Resident: Castro Chen ATTENDING PHYSICIAN STATEMENT I saw and evaluated the patient. I reviewed the resident's note and discussed the case with the resident. I agree with the resident's findings and plan as documented. SUBJECTIVE: Resting comfortably, non-verbal. OBJECTIVE: Afebrile, Hemodynamically Stable. Tmax 100.1. Poorly responsive, responds to painful stimuli. Last Vital Signs Temp Pulse Resp BP Pulse Ox 98.7 F 67 18 132/55 L 96 11/27/18 04:05 11/27/18 04:05 11/27/18 04:05 11/27/18 04:05 11/27/18 09:00 HEENT - Atramatic, Normocephalic. Heart - S1, S2, soft SM Lungs - L basal crackles Abdomen - soft, non-tender. Bowel Sounds normal Extremities - no edema/calf tenderness Laboratory Results - last 24 hr 11/26/18 11/26/18 11/26/18 22:28 22:28 22:28 WBC RBC Hgb Hct MCV MCH MCHC RDW Plt Count MPV Absolute Neuts (auto) Neutrophils % Neutrophils % (Manual) Band Neutrophils % Lymphocytes % Lymphocytes % (Manual) Monocytes % Monocytes % (Manual) Eosinophils % Eosinophils % (Manual) Basophils % Basophils % (Manual) Nucleated RBC % Platelet Estimate PT with INR 21.50 H INR 1.81 H PTT (Actin FS) 26.7 VBG pH 7.41 POC VBG pCO2 36.1 L POC VBG pO2 42.4 H VBG HCO3 22.3 L VBG O2 Sat (Adiel) 76.1 VBG Base Excess -1.4 Sodium Potassium Chloride Carbon Dioxide Anion Gap BUN Creatinine Creat Clearance w eGFR Random Glucose Lactic Acid Calcium Magnesium Total Bilirubin AST ALT Alkaline Phosphatase Creatine Kinase Creatine Kinase Index CK-MB (CK-2) Troponin I B-Natriuretic Peptide Total Protein Albumin Urine Color Yellow Urine Appearance Cloudy Urine pH 5.0 Ur Specific [place] 1.025 Urine Protein 1+ H Urine Glucose (UA) 2+ H Urine Ketones Trace Urine Blood 3+ H Urine Nitrite Positive Urine Bilirubin Negative Urine Urobilinogen 0.2 Ur Leukocyte Esterase 1+ H Urine WBC (Auto) 5-10 Urine RBC (Auto) 5-10 U Epithel Cells (Auto) 2-5 Urine Bacteria (Auto) Moderate 11/26/18 11/26/18 11/26/18 22:28 22:28 22:28 WBC RBC Hgb Hct MCV MCH MCHC RDW Plt Count MPV Absolute Neuts (auto) Neutrophils % Neutrophils % (Manual) Band Neutrophils % Lymphocytes % Lymphocytes % (Manual) Monocytes % Monocytes % (Manual) Eosinophils % Eosinophils % (Manual) Basophils % Basophils % (Manual) Nucleated RBC % Platelet Estimate PT with INR INR PTT (Actin FS) VBG pH POC VBG pCO2 POC VBG pO2 VBG HCO3 VBG O2 Sat (Adiel) VBG Base Excess Sodium 141 Potassium 3.7 Chloride 109 H Carbon Dioxide 23 Anion Gap 9 BUN 19 H Creatinine 0.9 Creat Clearance w eGFR 59.09 Random Glucose 281 H Lactic Acid 2.8 H* Calcium 8.4 L Magnesium 2.2 Total Bilirubin 0.3 AST 14 L ALT 20 Alkaline Phosphatase 84 Creatine Kinase 199 H Creatine Kinase Index 1.0 CK-MB (CK-2) 2.1 Troponin I < 0.02 B-Natriuretic Peptide 884.4 H Total Protein 6.6 Albumin 2.7 L Urine Color Urine Appearance Urine pH Ur Specific [place] Urine Protein Urine Glucose (UA) Urine Ketones Urine Blood Urine Nitrite Urine Bilirubin Urine Urobilinogen Ur Leukocyte Esterase Urine WBC (Auto) Urine RBC (Auto) U Epithel Cells (Auto) Urine Bacteria (Auto) 11/26/18 11/27/18 11/27/18 22:29 01:50 05:30 WBC 24.3 H RBC 3.67 Hgb 11.8 Hct 36.6 MCV 99.9 H MCH 32.3 MCHC 32.3 RDW 13.3 Plt Count 197 D MPV 9.7 D Absolute Neuts (auto) 21.0 H Neutrophils % 86.7 H Neutrophils % (Manual) 76.0 Band Neutrophils % 10.0 Lymphocytes % 6.5 L D Lymphocytes % (Manual) 10.0 Monocytes % 5.7 Monocytes % (Manual) 1 L Eosinophils % 0.0 D Eosinophils % (Manual) 0.0 Basophils % 1.1 D Basophils % (Manual) 0.0 Nucleated RBC % 0 Platelet Estimate Adequate PT with INR 24.30 H INR 2.04 H PTT (Actin FS) VBG pH POC VBG pCO2 POC VBG pO2 VBG HCO3 VBG O2 Sat (Adiel) VBG Base Excess Sodium Potassium Chloride Carbon Dioxide Anion Gap BUN Creatinine Creat Clearance w eGFR Random Glucose Lactic Acid 2.5 H* Calcium Magnesium Total Bilirubin AST ALT Alkaline Phosphatase Creatine Kinase Creatine Kinase Index CK-MB (CK-2) Troponin I B-Natriuretic Peptide Total Protein Albumin Urine Color Urine Appearance Urine pH Ur Specific [place] Urine Protein Urine Glucose (UA) Urine Ketones Urine Blood Urine Nitrite Urine Bilirubin Urine Urobilinogen Ur Leukocyte Esterase Urine WBC (Auto) Urine RBC (Auto) U Epithel Cells (Auto) Urine Bacteria (Auto) 11/27/18 11/27/18 05:30 05:30 WBC RBC Hgb Hct MCV MCH MCHC RDW Plt Count MPV Absolute Neuts (auto) Neutrophils % Neutrophils % (Manual) Band Neutrophils % Lymphocytes % Lymphocytes % (Manual) Monocytes % Monocytes % (Manual) Eosinophils % Eosinophils % (Manual) Basophils % Basophils % (Manual) Nucleated RBC % Platelet Estimate PT with INR INR PTT (Actin FS) 38.3 H VBG pH POC VBG pCO2 POC VBG pO2 VBG HCO3 VBG O2 Sat (Adiel) VBG Base Excess Sodium Potassium Chloride Carbon Dioxide Anion Gap BUN Creatinine Creat Clearance w eGFR Random Glucose Lactic Acid 2.4 H* Calcium Magnesium Total Bilirubin AST ALT Alkaline Phosphatase Creatine Kinase Creatine Kinase Index CK-MB (CK-2) Troponin I B-Natriuretic Peptide Total Protein Albumin Urine Color Urine Appearance Urine pH Ur Specific [place] Urine Protein Urine Glucose (UA) Urine Ketones Urine Blood Urine Nitrite Urine Bilirubin Urine Urobilinogen Ur Leukocyte Esterase Urine WBC (Auto) Urine RBC (Auto) U Epithel Cells (Auto) Urine Bacteria (Auto) Current Medications Generic Name Dose Route Start Last Admin Trade Name Freq PRN Reason Stop Dose Admin Amiodarone HCl 200 mg 11/28/18 10:00 Cordarone - PO DAILY [facility] Calcium Carbonate/Cholecalciferol 1 tab 11/28/18 10:00 Os-Sebas 500+D - PO DAILY [facility] Docusate Sodium 200 mg 11/27/18 22:00 Colace - PO HS [facility] Ergocalciferol 8,000 units 11/28/18 10:00 Drisdol Oral Solution - PO DAILY [facility] Guaifenesin 5 ml 11/27/18 22:00 Robitussin - PO BID [facility] Piperacillin Sod/Tazobactam 100 mls @ 200 mls/hr 11/27/18 15:00 Sod 4.5 gm/ Dextrose IVPB Q6H-IV [facility] Protocol Sodium Chloride 1,000 mls @ 42 mls/hr 11/27/18 14:23 Normal Saline - IV ASDIR [facility] Vancomycin HCl 1 gm in 200 mls @ 133.333 mls/hr 11/27/18 22:00 Vancomycin 1 Gm Premix - IVPB 11/27/18 23:29 ONCE ONE Protocol Piperacillin Sod/Tazobactam 100 mls @ 200 mls/hr 11/27/18 15:00 Sod 4.5 gm/ Dextrose IVPB 11/28/18 09:29 Q6H-IV [facility] Protocol Levothyroxine Sodium 125 mcg 11/28/18 07:00 Synthroid - PO DAILY@0700 [facility] Methylprednisolone Sodium Succinate 40 mg 11/27/18 18:00 Solu-Medrol - IVPUSH Q8H-IV [facility] Mirtazapine 7.5 mg 11/27/18 22:00 Remeron - PO HS [facility] Polyethylene Glycol 17 gm 11/28/18 10:00 Miralax (For Daily Use) - PO DAILY [facility] Warfarin Sodium 3 mg 11/27/18 18:00 Coumadin - PO DAILY@1800 [facility] Home Medications Medication Instructions Recorded Acetaminophen [Tylenol] 650 mg PO BID PRN 11/26/18 Albuterol 2.5/Ipratropium 0.5 1 neb IH QID PRN 11/26/18 [Duoneb -] Amiodarone HCl [Cordarone -] 200 mg PO DAILY 11/26/18 Calcium Carbonate/Vitamin D3 1 each PO DAILY 11/26/18 [Calcium 500 mg Chewable Tablet] Ergocalciferol [Drisdol Oral 8,000 units PO DAILY 11/26/18 Solution -] Levothyroxine [Synthroid -] 125 mcg PO DAILY 11/26/18 Mirtazapine [Remeron -] 7.5 mg PO HS 11/26/18 Polyethylene Glycol 3350 [Miralax 17 gm PO Q2D 11/26/18 (For Daily Use) -] Warfarin Sodium [Coumadin] 3 mg PO HS 11/26/18 ASSESSMENT/PLAN: 88 year old female from [facility], with PMH of Dementia, Atrial Fibrillation, s/ p PPM, CAD, Hypothyroidism, DM 2, Hx intestinal obstruction sec to Diverticulitis (s/p colostomy reversal), GERD, Vitmain D Deficiency, presents from OR after noted to have AMS, SOB, and desaturation to 85% on RA. 1. Acute Hypoxic respiratory Failure and Severe Sepsis secondary to L sided Pneumonia Leukocytosis - WBC 24.2 Received Vanc/Zosyn in ED. Will continue Zosyn Low grade fever - Tmax 100.1, hemodynamically Stable. Urine legionella/Sputum Cx requested. Lactate levels improving - continue gentle IV hydration. Supplemental O2 as needed. Possible aspiration, Swallow eval requested. No need for steroid - no history of Asthma/COPD and no wheeze - will discontinue Solumedrol. 2. L sided effusion on CXR ?parapneumonic, unknown whether she has hx of CHF. BNP 884 Echo requested. 3. Acute Encephalopathy atop baseline severe Dementia - baseline mental status unclear. Will send TSH/B12/RPR. CT brain requested. 4. Atrial Fibrillation - continue Amiodarone and Coumadin. INR therapeutic at 2.04 5. Alzheimer's Dementia - continue Mirtazapine 6. Hypothyroidism - Continue Levothyroxine. 7. DM 2 - Oral anti-hyperglycemics held - continue Insulin sliding scale. DVT Px - on Coumadin
--- NOTE | 2018-11-27 15:47 | CON.ID ---
Consult Consult Specialty:: infectious diseases - Past Medical History ...: No - Alcohol/Substance Use Hx Alcohol Use: No - Smoking History Smoking history: Never smoked Have you smoked in the past 12 months: No Aproximately how many cigarettes per day: 0 Home Medications - Allergies Allergies/Adverse Reactions: Allergies Allergy/AdvReac Type Severity Reaction Status Date / Time iodine Allergy Verified 11/26/18 22:02 shellfish derived Allergy Verified 11/26/18 22:02 dye Allergy Uncoded 11/26/18 22:02 hairdye Allergy Uncoded 11/26/18 22:02 - Home Medications Home Medications: Ambulatory Orders Acetaminophen [Tylenol] 650 mg PO BID PRN 11/26/18 Albuterol 2.5/Ipratropium 0.5 [Duoneb -] 1 neb IH QID PRN 11/26/18 Amiodarone HCl [Cordarone -] 200 mg PO DAILY 11/26/18 Calcium Carbonate/Vitamin D3 [Calcium 500 mg Chewable Tablet] 1 each PO DAILY Ergocalciferol [Drisdol Oral Solution -] 8,000 units PO DAILY 11/26/18 Levothyroxine [Synthroid -] 125 mcg PO DAILY 11/26/18 Mirtazapine [Remeron -] 7.5 mg PO HS 11/26/18 Polyethylene Glycol 3350 [Miralax (For Daily Use) -] 17 gm PO Q2D 11/26/18 Warfarin Sodium [Coumadin] 3 mg PO HS 11/26/18 Physical Exam Vital Signs: Vital Signs Temperature 98.7 F 11/27/18 04:05 Pulse Rate 67 11/27/18 04:05 Respiratory Rate 18 11/27/18 04:05 Blood Pressure 132/55 L 11/27/18 04:05 O2 Sat by Pulse Oximetry (%) 96 11/27/18 09:00 Labs: CBC, BMP 11/26/18 22:29 11/26/18 22:28
--- NOTE | 2018-11-27 15:59 | PN ---
Physical Exam: SUBJECTIVE: Patient seen and examined, no acute events overnight. T Max of 100.1. OBJECTIVE: Vital Signs Period Temp Pulse Resp BP Sys/[place] Pulse Ox Last 24 Hr 98.7 F-100.1 F 67-125 18-26 100-132/41-63 90-97 GENERAL: The patient is somnolent, minimally responsive to tactile stimulation HEAD: Normal with no signs of trauma. EYES: sclera anicteric, conjunctiva clear. ENT: Ears normal, nares patent, oropharynx clear without exudates, dry mucous membranes. NECK: Trachea midline, no carotid bruit, supple. LUNGS: Fine crackles?-, no wheezes, no accessory muscle use. HEART: Regular rate and rhythm, S1, S2 without murmur ABDOMEN: Soft, nontender, nondistended, normoactive bowel sounds EXTREMITIES: 2+ radial pulses, warm, well-perfused, no edema. NEUROLOGICAL: Somnolent SKIN: Warm, dry, normal turgor, no rashes or lesions noted Laboratory Results - last 24 hr 11/26/18 11/26/18 11/26/18 22:28 22:28 22:28 WBC RBC Hgb Hct MCV MCH MCHC RDW Plt Count MPV Absolute Neuts (auto) Neutrophils % Neutrophils % (Manual) Band Neutrophils % Lymphocytes % Lymphocytes % (Manual) Monocytes % Monocytes % (Manual) Eosinophils % Eosinophils % (Manual) Basophils % Basophils % (Manual) Nucleated RBC % Platelet Estimate PT with INR 21.50 H INR 1.81 H PTT (Actin FS) 26.7 VBG pH 7.41 POC VBG pCO2 36.1 L POC VBG pO2 42.4 H VBG HCO3 22.3 L VBG O2 Sat (Adiel) 76.1 VBG Base Excess -1.4 Sodium Potassium Chloride Carbon Dioxide Anion Gap BUN Creatinine Creat Clearance w eGFR Random Glucose Lactic Acid Calcium Magnesium Total Bilirubin AST ALT Alkaline Phosphatase Creatine Kinase Creatine Kinase Index CK-MB (CK-2) Troponin I B-Natriuretic Peptide Total Protein Albumin Urine Color Yellow Urine Appearance Cloudy Urine pH 5.0 Ur Specific [place] 1.025 Urine Protein 1+ H Urine Glucose (UA) 2+ H Urine Ketones Trace Urine Blood 3+ H Urine Nitrite Positive Urine Bilirubin Negative Urine Urobilinogen 0.2 Ur Leukocyte Esterase 1+ H Urine WBC (Auto) 5-10 Urine RBC (Auto) 5-10 U Epithel Cells (Auto) 2-5 Urine Bacteria (Auto) Moderate 11/26/18 11/26/18 11/26/18 22:28 22:28 22:28 WBC RBC Hgb Hct MCV MCH MCHC RDW Plt Count MPV Absolute Neuts (auto) Neutrophils % Neutrophils % (Manual) Band Neutrophils % Lymphocytes % Lymphocytes % (Manual) Monocytes % Monocytes % (Manual) Eosinophils % Eosinophils % (Manual) Basophils % Basophils % (Manual) Nucleated RBC % Platelet Estimate PT with INR INR PTT (Actin FS) VBG pH POC VBG pCO2 POC VBG pO2 VBG HCO3 VBG O2 Sat (Adiel) VBG Base Excess Sodium 141 Potassium 3.7 Chloride 109 H Carbon Dioxide 23 Anion Gap 9 BUN 19 H Creatinine 0.9 Creat Clearance w eGFR 59.09 Random Glucose 281 H Lactic Acid 2.8 H* Calcium 8.4 L Magnesium 2.2 Total Bilirubin 0.3 AST 14 L ALT 20 Alkaline Phosphatase 84 Creatine Kinase 199 H Creatine Kinase Index 1.0 CK-MB (CK-2) 2.1 Troponin I < 0.02 B-Natriuretic Peptide 884.4 H Total Protein 6.6 Albumin 2.7 L Urine Color Urine Appearance Urine pH Ur Specific [place] Urine Protein Urine Glucose (UA) Urine Ketones Urine Blood Urine Nitrite Urine Bilirubin Urine Urobilinogen Ur Leukocyte Esterase Urine WBC (Auto) Urine RBC (Auto) U Epithel Cells (Auto) Urine Bacteria (Auto) 11/26/18 11/27/18 11/27/18 22:29 01:50 05:30 WBC 24.3 H RBC 3.67 Hgb 11.8 Hct 36.6 MCV 99.9 H MCH 32.3 MCHC 32.3 RDW 13.3 Plt Count 197 D MPV 9.7 D Absolute Neuts (auto) 21.0 H Neutrophils % 86.7 H Neutrophils % (Manual) 76.0 Band Neutrophils % 10.0 Lymphocytes % 6.5 L D Lymphocytes % (Manual) 10.0 Monocytes % 5.7 Monocytes % (Manual) 1 L Eosinophils % 0.0 D Eosinophils % (Manual) 0.0 Basophils % 1.1 D Basophils % (Manual) 0.0 Nucleated RBC % 0 Platelet Estimate Adequate PT with INR 24.30 H INR 2.04 H PTT (Actin FS) VBG pH POC VBG pCO2 POC VBG pO2 VBG HCO3 VBG O2 Sat (Adiel) VBG Base Excess Sodium Potassium Chloride Carbon Dioxide Anion Gap BUN Creatinine Creat Clearance w eGFR Random Glucose Lactic Acid 2.5 H* Calcium Magnesium Total Bilirubin AST ALT Alkaline Phosphatase Creatine Kinase Creatine Kinase Index CK-MB (CK-2) Troponin I B-Natriuretic Peptide Total Protein Albumin Urine Color Urine Appearance Urine pH Ur Specific [place] Urine Protein Urine Glucose (UA) Urine Ketones Urine Blood Urine Nitrite Urine Bilirubin Urine Urobilinogen Ur Leukocyte Esterase Urine WBC (Auto) Urine RBC (Auto) U Epithel Cells (Auto) Urine Bacteria (Auto) 11/27/18 11/27/18 05:30 05:30 WBC RBC Hgb Hct MCV MCH MCHC RDW Plt Count MPV Absolute Neuts (auto) Neutrophils % Neutrophils % (Manual) Band Neutrophils % Lymphocytes % Lymphocytes % (Manual) Monocytes % Monocytes % (Manual) Eosinophils % Eosinophils % (Manual) Basophils % Basophils % (Manual) Nucleated RBC % Platelet Estimate PT with INR INR PTT (Actin FS) 38.3 H VBG pH POC VBG pCO2 POC VBG pO2 VBG HCO3 VBG O2 Sat (Adiel) VBG Base Excess Sodium Potassium Chloride Carbon Dioxide Anion Gap BUN Creatinine Creat Clearance w eGFR Random Glucose Lactic Acid 2.4 H* Calcium Magnesium Total Bilirubin AST ALT Alkaline Phosphatase Creatine Kinase Creatine Kinase Index CK-MB (CK-2) Troponin I B-Natriuretic Peptide Total Protein Albumin Urine Color Urine Appearance Urine pH Ur Specific [place] Urine Protein Urine Glucose (UA) Urine Ketones Urine Blood Urine Nitrite Urine Bilirubin Urine Urobilinogen Ur Leukocyte Esterase Urine WBC (Auto) Urine RBC (Auto) U Epithel Cells (Auto) Urine Bacteria (Auto) Active Medications Home Medications Medication Instructions Recorded Acetaminophen [Tylenol] 650 mg PO BID PRN 11/26/18 Albuterol 2.5/Ipratropium 0.5 1 neb IH QID PRN 11/26/18 [Duoneb -] Amiodarone HCl [Cordarone -] 200 mg PO DAILY 11/26/18 Calcium Carbonate/Vitamin D3 1 each PO DAILY 11/26/18 [Calcium 500 mg Chewable Tablet] Ergocalciferol [Drisdol Oral 8,000 units PO DAILY 11/26/18 Solution -] Levothyroxine [Synthroid -] 125 mcg PO DAILY 11/26/18 Mirtazapine [Remeron -] 7.5 mg PO HS 11/26/18 Polyethylene Glycol 3350 [Miralax 17 gm PO Q2D 11/26/18 (For Daily Use) -] Warfarin Sodium [Coumadin] 3 mg PO HS 11/26/18 Current Medications Amiodarone HCl (Cordarone -) 200 mg PO DAILY ON LICENSE OF [facility] Calcium Carbonate/Cholecalciferol (Os-Sebas 500+D -) 1 tab PO DAILY [facility] Docusate Sodium (Colace -) 200 mg PO HS ON LICENSE OF [facility] Ergocalciferol (Drisdol Oral Solution -) 8,000 units PO DAILY [facility] Guaifenesin (Robitussin -) 5 ml PO BID [facility] Sodium Chloride (Normal Saline -) 1,000 mls @ 60 mls/hr IV ASDIR [facility] Vancomycin HCl (Vancomycin 1 Gm Premix -) 1 gm in 200 mls @ 133.333 mls/hr IVPB ONCE ONE; Protocol Stop: 11/27/18 23:29 Piperacillin Sod/Tazobactam (Sod 3.375 gm/ Dextrose) 50 mls @ 100 mls/hr IVPB Q8H-IV [facility]; Protocol Levothyroxine Sodium (Synthroid -) 125 mcg PO DAILY@0700 ON LICENSE OF [facility] Methylprednisolone Sodium Succinate (Solu-Medrol -) 40 mg IVPUSH Q8H-IV [facility] Mirtazapine (Remeron -) 7.5 mg PO HS ON LICENSE OF [facility] Polyethylene Glycol (Miralax (For Daily Use) -) 17 gm PO DAILY [facility] Warfarin Sodium (Coumadin -) 3 mg PO DAILY@1800 ON [facility] OF [facility] ASSESSMENT/PLAN: Pt is an 88 y/o lady who presents from [facility] with a significant past medical history of Afib (with pacemaker), CAD, dementia, hypothyroid, diabetes, intestinal obstruction due to diverticulitis (s/p colostomy placement and reversal), vitamin D deficiency, and GERD who presented to [facility] from [facility] after she was observed to desaturate on room air to 85% on room air.' #Sepsis Likely 2/2 to UTI CXR: minimal left pleural effusion/ mild left atelectatic changes Unlikely to be the cause of desaturation to 85%. Desaturation is more likely to have been due to mucus plugging and positional Received Vanc/Zosyn in ED. f/u Urine Legionella/ Urine Strep Pneumo LA: 2.8-->2.5-->2.4, f/u repeat ID Consult (Dr. Rosenberg) appreciated I.V. Steroids Solu-Medrol 40 Q8H UA: Positive for LE, Nitrites, 3+ blood, WBCs 5-10 will c/w Zosyn, d/c Vancomycin #Atrial Fibrillation d/c Telemetry per Cardio Cardio Consult (Dr. Mark) appreciated Pt reportedly on Amiodorone. Confirmed with [place] medication list. Will continue. INR: 1.81-->2.04 #Dementia C/w Mirtazapine [address] negative for acute pathology, shows increase loss of volume of parenchyma compared to prior in 2013--> associated with Alzheimer's dementia #Hypothyroidism C/w Levothyroxine #FEN NS@60 cc/hr Monitor Electrolytes NPO #DVT ppx Coumadin #Dispo M/S Visit type - Emergency Visit Emergency Visit: Yes ED Registration Date: 11/26/18 Care time: The patient presented to the Emergency Department on the above date and was hospitalized for further evaluation of their emergent condition. - New Patient This patient is new to me today: Yes Date on this admission: 11/28/18 - Critical Care Critical Care patient: No - Discharge Referral Referred to [facility] Med P.C.: No
--- NOTE | 2018-11-27 16:42 | CONSULT ---
Admitting History and Physical - Primary Care Physician PCP: Merlin Martines - Admission History of Present Illness: Pt is an 88 y/o lady who presents from [facility] with a significant past medical history of Afib (with pacemaker), CAD, dementia, hypothyroid, diabetes, intestinal obstruction due to diverticulitis (s/p colostomy placement and reversal), vitamin D deficiency, and GERD who presented to [facility] ED from [facility] after she was observed to desaturate on room air to 85% on room air. This is my first consult with this pt. History Source: Medical Record Limitations to Obtaining History: Clinical Condition, Dementia - Past Medical History ...: No - Advance Directives Advance Directives: Yes: DNR - Smoking History Smoking history: Never smoked Have you smoked in the past 12 months: No Aproximately how many cigarettes per day: 0 - Alcohol/Substance Use Hx Alcohol Use: No History - Admission Reason For Visit: LEUKOCYTOSIS, HYPOXIA, SEPSIS, PNEUMONIA - Diagnostics X-ray: Report Reviewed CT Scan: Report Reviewed - General Mental Status: Confused, Flat Affect Attention: Mild Impairment Ability to Follow Directions: Poor Head/Neck Control: Fair - Hearing Hearing: Functional Hearing Aide: No With Patient: No Speech Evaluation - Communication Primary Language: [place] Communication: Yes: Non-Communicable - Language/Auditory Comprehension Observation: Able to respond to yes/no queries: No, Comprehends Conversational Speech: No (maybe social speech) - Swallow Evaluation/Bedside Assessment Current Nutritional Intake: NPO Oral Secretions: Yes: WFL Dentition: Yes: Adequate Facial Symmetry at Rest: Symmetrical Jaw Position: Closed at Rest (Severe Bruxism) Laryngeal Movement: Labored,delay initiation Bolus Size: WFL Sensation: Bite Reflex Labial Seal: WFL Oral Prep Time: Increased Timing of Swallow: Delayed Coughing/Throat Clear: No Change in Voice: No Recommendations - Speech Evaluation, Impression/Plan Impression: Alert, establishes and maintains eye contact, severe Bruxism. Opens mouth and readily accepted puree with delayed but fairly brisk swallow. Suspect interrmittent oral holding and difficulty opening mouth to accept food. - Disposition [facility] to[facility] - Dysphagia Impressions/Plan Dysphagia Impressions: Mild Impairment *Silent aspiration: cannot be R/O at bedside Dysphagia Treatment Plan: Small Bites, Chin Tuck/Down, Clear Pocket Food, Safe Rate, 1/2 tsp. at a time, Elevate HOB during feed Recommendations: Modified Barium Swallow (if cough, congestion, fever) - Recommendations Diet Consistency: Dysphagia Pureed Medication Administration: Crushed with applesauce (give in pudding/maple syrup) Liquids: [place] Thick (on tsp) Supplement: Magic Cup, Ensure Pudding, Other (2 calHN)
[2018-11-27] MEDS ORDERED: WARFARIN NA 3 MG TABLET PO SCH (18:00)
[2018-11-27] MEDS ORDERED: methylPREDNISolone NA SUCC 40 MG/1 ML VIAL IVPUSH SCH (18:00)
[2018-11-27] MEDS ORDERED: PIPERACILLIN/TAZOBACTAM 3.375 GM VIAL IVPB ONE (18:26)
[2018-11-27] MEDS ORDERED: DEXTROSE 5%-WATER - 50 ML IVPB ONE (18:26)
[2018-11-27] MEDS: SODIUM CHLORIDE 1,000 ML IV SCH ×2 (18:42→23:03)
[2018-11-27] MEDS: PIPERACILLIN/TAZOB 3.375 GM 3.375 GM in DEXTROSE 5%-WATER - 50 ML IVPB SCH (18:43)
[2018-11-27] MEDS: WARFARIN NA 3 MG TABLET PO SCH (18:43)
[2018-11-27] MEDS: DOCUSATE SODIUM 100 MG CAPSULE (FP) PO SCH (21:08)
[2018-11-27] MEDS: MIRTAZAPINE 15 MG TABLET (FP) PO SCH (21:08)
[2018-11-27] MEDS: guaiFENesin 200 MG/10 ML 10 ML UNIT-DOSE CUPS PO SCH (21:09)
[2018-11-27] MEDS ORDERED: VANCOMYCIN 1 GM PREMIX - 1 GM/200 ML BAG IVPB ONE ×2 (22:00)
[2018-11-27] MEDS ORDERED: MIRTAZAPINE 15 MG TABLET (FP) PO SCH (22:00)
[2018-11-27] MEDS ORDERED: DOCUSATE SODIUM 100 MG CAPSULE (FP) PO SCH (22:00)
[2018-11-28] MEDS ORDERED: DEXTROSE 5%-WATER - 50 ML IVPB ONE ×3 (02:44→16:18)
[2018-11-28] MEDS ORDERED: PIPERACILLIN/TAZOBACTAM 3.375 GM VIAL IVPB ONE ×3 (02:44→16:18)
[2018-11-28] MEDS: PIPERACILLIN/TAZOB 3.375 GM 3.375 GM in DEXTROSE 5%-WATER - 50 ML IVPB SCH ×3 (02:52→17:13)
[2018-11-28] MEDS: LEVOTHYROXINE NA 125 MCG TABLET (FP) PO SCH (06:36)
[2018-11-28 08:58] LABS: INR 2.64 (0.83-1.09); PROTHROMBIN TIME (PATIENT) 31.5 SEC (9.7-13.0)
[2018-11-28] MEDS ORDERED: PIPERACILLIN/TAZOB 4.5 GM 4.5 GM in DEXTROSE 5%-WATER 100 ML IVPB SCH (09:00)
[2018-11-28 09:25] LABS: ALBUMIN 2.3 g/dl (3.4-5.0); ALK PHOS 64 U/L (45-117); ANION GAP 6 MMOL/L (8-16); BILIRUBIN,TOTAL 0.2 mg/dL (0.2-1); BLOOD UREA NITROGEN 14 mg/dL (7-18); CALCIUM 7.9 mg/dL (8.5-10.1); CHLORIDE 114 mmol/L (98-107); CO2 25 mmol/L (21-32); CREATININE 0.7 mg/dL (0.55-1.3); GLUCOSE,RANDOM 92 mg/dL (74-106); MAGNESIUM 2.4 mg/dL (1.8-2.4); PHOSPHOROUS 3.1 mg/dL (2.5-4.9); POTASSIUM 3.9 mmol/L (3.5-5.1); SGOT/AST 13 U/L (15-37); SGPT/ALT 14 U/L (13-61); SODIUM 146 mmol/L (136-145); TOT PROT 5.6 g/dl (6.4-8.2)
[2018-11-28] MEDS: CALCIUM 500MG/VIT-D 200 UNITS COMBO TABLET (FP) PO SCH (09:39)
[2018-11-28] MEDS: AMIODARONE HCL 200 MG TABLET (FP) PO SCH (09:39)
[2018-11-28] MEDS: POLYETHYLENE GLYCOL 3350 119 GM BTL PO SCH (09:40)
[2018-11-28] MEDS ORDERED: PT OWN MED DRAWER 7, Y5N ONE (09:40)
[2018-11-28] MEDS: guaiFENesin 200 MG/10 ML 10 ML UNIT-DOSE CUPS PO SCH ×2 (09:41→22:45)
[2018-11-28] MEDS: SODIUM CHLORIDE 1,000 ML IV SCH (10:17)
[2018-11-28 10:29] LABS: BASO % 1.2 % (0-2.0); HEMATOCRIT 32.5 % (32.4-45.2); HEMOGLOBIN 10.3 GM/dL (10.7-15.3); LYMPH % 7.7 % (8-40); MCH 31.8 pg (25.7-33.7); MCHC 31.6 g/dl (32.0-36.0); MEAN CELL VOLUME 100.6 fl (80-96); MEAN PLT VOLUME 9.6 fl (7.5-11.1); NEUT % 86.1 % (42.8-82.8); PLATELET COUNT 191 K/MM3 (134-434); RBC 3.23 M/mm3 (3.60-5.2); RDW 13.3 % (11.6-15.6)
[2018-11-28 11:19] LABS: ANISOCYTOSIS 0; MACROCYTOSIS 0; PLATELET ESTIMATE NORMAL
--- NOTE | 2018-11-28 11:51 | PN ---
Physical Exam: SUBJECTIVE: Patient seen and examined. Pt. agitated overnight, pulled out IVs. Had first BM during rounds today. No other acute events overnight OBJECTIVE: Vital Signs Period Temp Pulse Resp BP Sys/Mad[place] Pulse Ox Last 24 Hr 97.8 F-98.8 F 62-91 16-20 120-142/59-95 96 GENERAL: The patient is awake, alert eyes open spontaneously, no acute distress HEAD: Normal with no signs of trauma. EYES: sclera anicteric, conjunctiva clear. ENT: Ears normal, nares patent, oropharynx clear without exudates, moist mucous membranes. NECK: Trachea midline, no carotid bruit, supple. LUNGS: poor inspiratory effort, no crackles, no wheezes, no accessory muscle use. HEART: Regular rate and rhythm, S1, S2 without murmur ABDOMEN: Soft, nontender, nondistended, normoactive bowel sounds EXTREMITIES: 2+ radial pulses, warm, well-perfused, no edema. NEUROLOGICAL: Awake, alert, minimally verbal SKIN: Warm, dry, normal turgor, no rashes or lesions noted Laboratory Results - last 24 hr 11/27/18 11/28/18 11/28/18 17:45 07:00 07:00 WBC 21.0 H RBC 3.23 L Hgb 10.3 L Hct 32.5 MCV 100.6 H MCH 31.8 MCHC 31.6 L RDW 13.3 Plt Count 191 MPV 9.6 Absolute Neuts (auto) 18.0 H Neutrophils % 86.1 H Neutrophils % (Manual) 78.0 Band Neutrophils % 0.0 Lymphocytes % 7.7 L Lymphocytes % (Manual) 17.0 D Monocytes % 5.0 Monocytes % (Manual) 5 D Eosinophils % 0.0 Eosinophils % (Manual) 0.0 Basophils % 1.2 Basophils % (Manual) 0.0 Myelocytes % (Man) 0 Promyelocytes % (Man) 0 Blast Cells % (Manual) 0 Nucleated RBC % 0 Metamyelocytes 0 Hypochromia 0 Platelet Estimate Normal Polychromasia 0 Poikilocytosis 0 Anisocytosis 0 Microcytosis 0 Macrocytosis 0 PT with INR INR Sodium 146 H Potassium 3.9 Chloride 114 H Carbon Dioxide 25 Anion Gap 6 L BUN 14 Creatinine 0.7 Creat Clearance w eGFR 78.97 Random Glucose 92 Calcium 7.9 L Phosphorus 3.1 Magnesium 2.4 Total Bilirubin 0.2 AST 13 L ALT 14 Alkaline Phosphatase 64 Total Protein 5.6 L Albumin 2.3 L Vitamin B12 772 TSH 0.54 RPR Titer 11/28/18 11/28/18 07:00 07:00 WBC RBC Hgb Hct MCV MCH MCHC RDW Plt Count MPV Absolute Neuts (auto) Neutrophils % Neutrophils % (Manual) Band Neutrophils % Lymphocytes % Lymphocytes % (Manual) Monocytes % Monocytes % (Manual) Eosinophils % Eosinophils % (Manual) Basophils % Basophils % (Manual) Myelocytes % (Man) Promyelocytes % (Man) Blast Cells % (Manual) Nucleated RBC % Metamyelocytes Hypochromia Platelet Estimate Polychromasia Poikilocytosis Anisocytosis Microcytosis Macrocytosis PT with INR 31.50 H INR 2.64 H Sodium Potassium Chloride Carbon Dioxide Anion Gap BUN Creatinine Creat Clearance w eGFR Random Glucose Calcium Phosphorus Magnesium Total Bilirubin AST ALT Alkaline Phosphatase Total Protein Albumin Vitamin B12 TSH RPR Titer Nonreactive Active Medications Home Medications Medication Instructions Recorded Acetaminophen [Tylenol] 650 mg PO BID PRN 11/26/18 Albuterol 2.5/Ipratropium 0.5 1 neb IH QID PRN 11/26/18 [Duoneb -] Amiodarone HCl [Cordarone -] 200 mg PO DAILY 11/26/18 Calcium Carbonate/Vitamin D3 1 each PO DAILY 11/26/18 [Calcium 500 mg Chewable Tablet] Ergocalciferol [Drisdol Oral 8,000 units PO DAILY 11/26/18 Solution -] Levothyroxine [Synthroid -] 125 mcg PO DAILY 11/26/18 Mirtazapine [Remeron -] 7.5 mg PO HS 11/26/18 Polyethylene Glycol 3350 [Miralax 17 gm PO Q2D 11/26/18 (For Daily Use) -] Warfarin Sodium [Coumadin] 3 mg PO HS 11/26/18 Current Medications Amiodarone HCl (Cordarone -) 200 mg PO DAILY [facility] Last Admin: 11/28/18 09:39 Dose: 200 mg Calcium Carbonate/Cholecalciferol (Os-Sebas 500+D -) 1 tab PO DAILY [facility] Last Admin: 11/28/18 09:39 Dose: 1 tab Docusate Sodium (Colace -) 200 mg PO HS [facility] Last Admin: 11/27/18 21:08 Dose: 200 mg Ergocalciferol (Drisdol Oral Solution -) 8,000 units PO DAILY [facility] Guaifenesin (Robitussin -) 5 ml PO BID [facility] Last Admin: 11/28/18 09:41 Dose: 5 ml Piperacillin Sod/Tazobactam (Sod 3.375 gm/ Dextrose) 50 mls @ 100 mls/hr IVPB Q8H-IV [facility]; Protocol Last Admin: 11/28/18 10:15 Dose: 100 mls/hr Sodium Chloride (Normal Saline -) 1,000 mls @ 60 mls/hr IV ASDIR [facility] Last Admin: 11/28/18 10:17 Dose: 60 mls/hr Levothyroxine Sodium (Synthroid -) 125 mcg PO DAILY@0700 [facility] Last Admin: 11/28/18 06:36 Dose: 125 mcg Mirtazapine (Remeron -) 7.5 mg PO HS [facility] Last Admin: 11/27/18 21:08 Dose: 7.5 mg Polyethylene Glycol (Miralax (For Daily Use) -) 17 gm PO DAILY [facility] Last Admin: 11/28/18 09:40 Dose: 17 gm Warfarin Sodium (Coumadin -) 3 mg PO DAILY@1800 [facility] Last Admin: 11/27/18 18:43 Dose: 3 mg ASSESSMENT/PLAN: Pt is an 88 y/o lady who presents from [facility] with a significant past medical history of Afib (with pacemaker), CAD, dementia, hypothyroid, diabetes, intestinal obstruction due to diverticulitis (s/p colostomy placement and reversal), vitamin D deficiency, and GERD who presented to [facility] from [facility] after she was observed to desaturate on room air to 85% on room air.' #Sepsis Likely 2/2 to UTI CXR: minimal left pleural effusion/ mild left atelectatic changes Unlikely to be the cause of desaturation to 85%. Desaturation is more likely to have been due to mucus plugging and positional Received Vanc/Zosyn in ED. f/u Urine Legionella/ Urine Strep Pneumo UCx: Preliminary reading growing Gram Neg. Rods 100k CFUs LA: 2.8-->2.5-->2.4, No Rpt. ordered, will obtain lactate if Pt.'s clinical status declines however Pt. is improving clinically. ID Consult (Dr. Rosenberg) appreciated IV Steroids D/c as Pt. has no wheezing, no Hx. of Lung disease UA: Positive for LE, Nitrites, 3+ blood, WBCs 5-10 will c/w Zosyn, d/c Vancomycin #Atrial Fibrillation d/c Telemetry per Cardio Cardio Consult (Dr. Mark) appreciated Pt reportedly on Amiodorone. Confirmed with [facility] medication list. Will continue. INR: 1.81-->2.04 #Dementia C/w Mirtazapine [address] negative for acute pathology, shows increase loss of volume of parenchyma compared to prior in 2013--> associated with Alzheimer's dementia #Hypothyroidism C/w Levothyroxine #FEN NS@60 cc/hr Monitor Electrolytes Dyspagia Puree diet with supplement of Magic cup and ensure pudding, Speech and Swallow consult appreciated. #DVT ppx Coumadin 3mg #Dispo M/S
[2018-11-28] MEDS: ERGOCALCIFEROL 8,000 UNITS/ML DROPSBTL PO SCH (13:18)
--- NOTE | 2018-11-28 15:24 | PN ---
Progress Note, Physician History of Present Illness: Pt seen and examined. Events noted, labs/imaging results reviewed. She is demented, in no distress, afebrile. Son at bedside states she is less weak. - Current Medication List Current Medications: Active Medications Amiodarone HCl (Cordarone -) 200 mg PO DAILY [facility] Last Admin: 11/28/18 09:39 Dose: 200 mg Calcium Carbonate/Cholecalciferol (Os-Sebas 500+D -) 1 tab PO DAILY [facility] Last Admin: 11/28/18 09:39 Dose: 1 tab Docusate Sodium (Colace -) 200 mg PO HS [facility] Last Admin: 11/27/18 21:08 Dose: 200 mg Ergocalciferol (Drisdol Oral Solution -) 8,000 units PO DAILY [facility] Last Admin: 11/28/18 13:18 Dose: 8,000 units Guaifenesin (Robitussin -) 5 ml PO BID [facility] Last Admin: 11/28/18 09:41 Dose: 5 ml Piperacillin Sod/Tazobactam (Sod 3.375 gm/ Dextrose) 50 mls @ 100 mls/hr IVPB Q8H-IV [facility]; Protocol Last Admin: 11/28/18 10:15 Dose: 100 mls/hr Sodium Chloride (Normal Saline -) 1,000 mls @ 60 mls/hr IV ASDIR [facility] Last Admin: 11/28/18 10:17 Dose: 60 mls/hr Levothyroxine Sodium (Synthroid -) 125 mcg PO DAILY@0700 [facility] Last Admin: 11/28/18 06:36 Dose: 125 mcg Mirtazapine (Remeron -) 7.5 mg PO HS [facility] Last Admin: 11/27/18 21:08 Dose: 7.5 mg Polyethylene Glycol (Miralax (For Daily Use) -) 17 gm PO DAILY [facility] Last Admin: 11/28/18 09:40 Dose: 17 gm Warfarin Sodium (Coumadin -) 3 mg PO DAILY@1800 [facility] Last Admin: 11/27/18 18:43 Dose: 3 mg - Objective Vital Signs: Vital Signs Temperature 97.9 F 11/28/18 13:46 Pulse Rate 104 H 11/28/18 13:46 Respiratory Rate 16 11/28/18 07:57 Blood Pressure 135/95 11/28/18 07:57 O2 Sat by Pulse Oximetry (%) 97 11/28/18 09:00 Constitutional: Yes: No Distress Cardiovascular: Yes: Regular Rate and Rhythm Respiratory: Yes: Regular Gastrointestinal: Yes: Normal Bowel Sounds, Soft Extremities: Yes: WNL Neurological: Yes: Alert, Other (demented) Labs: CBC, BMP 11/28/18 07:00 11/28/18 07:00 INR, PTT INR 2.64 (0.83-1.09) H 11/28/18 07:00 Microbiology 11/26/18 22:28 Urine - Urine - Catheterized Urine Culture - Preliminary Gram Negative Agustín 11/26/18 22:28 Blood - Peripheral Venous Blood Culture - Preliminary NO GROWTH OBTAINED AFTER 24 HOURS, INCUBATION TO CONTINUE FOR 4 DAYS. 11/26/18 22:28 Blood - Peripheral Venous Blood Culture - Preliminary NO GROWTH OBTAINED AFTER 24 HOURS, INCUBATION TO CONTINUE FOR 4 DAYS. - ....Imaging X-ray: Report Reviewed Cat Scan: Report Reviewed Problem List - Problems (1) Hypothyroidism Code(s): E03.9 - HYPOTHYROIDISM, UNSPECIFIED Qualifiers: Hypothyroidism type: unspecified Qualified Code(s): E03.9 - Hypothyroidism , unspecified (2) Hypoxia Code(s): R09.02 - HYPOXEMIA (3) Lactic acidemia Code(s): E87.2 - ACIDOSIS (4) Leukocytosis Code(s): D72.829 - ELEVATED WHITE BLOOD CELL COUNT, UNSPECIFIED Qualifiers: Leukocytosis type: unspecified Qualified Code(s): D72.829 - Elevated white blood cell count, unspecified (5) Pacemaker Code(s): Z95.0 - PRESENCE OF CARDIAC PACEMAKER (6) Paroxysmal atrial fibrillation Code(s): I48.0 - PAROXYSMAL ATRIAL FIBRILLATION (7) Pneumonia Code(s): J18.9 - PNEUMONIA, UNSPECIFIED ORGANISM Qualifiers: Pneumonia type: due to unspecified organism (8) Sepsis Code(s): A41.9 - SEPSIS, UNSPECIFIED ORGANISM (9) Sick sinus syndrome Code(s): I49.5 - SICK SINUS SYNDROME Assessment/Plan Sepsis HCAP UTI Hypoxia AFIB SSS s/p PPM CAD DM Dementia hypothyroidism -- wbc trending down, now afebrile -- continue antibiotics -- repeat cbc in a.m. -- f/u urine culture results blood cultures neg. 24 hrs monitor closely
--- NOTE | 2018-11-28 16:44 | PN ---
Teaching Attending Note Name of Resident: Castro Chen ATTENDING PHYSICIAN STATEMENT I saw and evaluated the patient. I reviewed the resident's note and discussed the case with the resident. I agree with the resident's findings and plan as documented. SUBJECTIVE: Resting comfortably, non-verbal. OBJECTIVE: Afebrile, Hemodynamically Stable. Poorly responsive, opens eyes spontaneously. Oriented x 0 Last Vital Signs Temp Pulse Resp BP Pulse Ox 97.9 F 104 H 16 135/95 97 11/28/18 13:46 11/28/18 13:46 11/28/18 07:57 11/28/18 07:57 11/28/18 09:00 Heart - S1, S2, soft SM Lungs - L basal crackles Abdomen - soft, non-tender. Bowel Sounds normal Extremities - no edema/calf tenderness Laboratory Results - last 24 hr 11/27/18 11/28/18 11/28/18 17:45 07:00 07:00 WBC 21.0 H RBC 3.23 L Hgb 10.3 L Hct 32.5 MCV 100.6 H MCH 31.8 MCHC 31.6 L RDW 13.3 Plt Count 191 MPV 9.6 Absolute Neuts (auto) 18.0 H Neutrophils % 86.1 H Neutrophils % (Manual) 78.0 Band Neutrophils % 0.0 Lymphocytes % 7.7 L Lymphocytes % (Manual) 17.0 D Monocytes % 5.0 Monocytes % (Manual) 5 D Eosinophils % 0.0 Eosinophils % (Manual) 0.0 Basophils % 1.2 Basophils % (Manual) 0.0 Myelocytes % (Man) 0 Promyelocytes % (Man) 0 Blast Cells % (Manual) 0 Nucleated RBC % 0 Metamyelocytes 0 Hypochromia 0 Platelet Estimate Normal Polychromasia 0 Poikilocytosis 0 Anisocytosis 0 Microcytosis 0 Macrocytosis 0 PT with INR INR Sodium 146 H Potassium 3.9 Chloride 114 H Carbon Dioxide 25 Anion Gap 6 L BUN 14 Creatinine 0.7 Creat Clearance w eGFR 78.97 Random Glucose 92 Calcium 7.9 L Phosphorus 3.1 Magnesium 2.4 Total Bilirubin 0.2 AST 13 L ALT 14 Alkaline Phosphatase 64 Total Protein 5.6 L Albumin 2.3 L Vitamin B12 772 TSH 0.54 RPR Titer 11/28/18 11/28/18 07:00 07:00 WBC RBC Hgb Hct MCV MCH MCHC RDW Plt Count MPV Absolute Neuts (auto) Neutrophils % Neutrophils % (Manual) Band Neutrophils % Lymphocytes % Lymphocytes % (Manual) Monocytes % Monocytes % (Manual) Eosinophils % Eosinophils % (Manual) Basophils % Basophils % (Manual) Myelocytes % (Man) Promyelocytes % (Man) Blast Cells % (Manual) Nucleated RBC % Metamyelocytes Hypochromia Platelet Estimate Polychromasia Poikilocytosis Anisocytosis Microcytosis Macrocytosis PT with INR 31.50 H INR 2.64 H Sodium Potassium Chloride Carbon Dioxide Anion Gap BUN Creatinine Creat Clearance w eGFR Random Glucose Calcium Phosphorus Magnesium Total Bilirubin AST ALT Alkaline Phosphatase Total Protein Albumin Vitamin B12 TSH RPR Titer Nonreactive Current Medications Generic Name Dose Route Start Last Admin Trade Name Freq PRN Reason Stop Dose Admin Amiodarone HCl 200 mg 11/28/18 10:00 11/28/18 09:39 Cordarone - PO 200 mg DAILY [facility] Administration Calcium Carbonate/Cholecalciferol 1 tab 11/28/18 10:00 11/28/18 09:39 Os-Sebas 500+D - PO 1 tab DAILY [facility] Administration Docusate Sodium 200 mg 11/27/18 22:00 11/27/18 21:08 Colace - PO 200 mg HS [facility] Administration Ergocalciferol 8,000 units 11/28/18 10:00 11/28/18 13:18 Drisdol Oral Solution - PO 8,000 units DAILY [facility] Administration Guaifenesin 5 ml 11/27/18 22:00 11/28/18 09:41 Robitussin - PO 5 ml BID [facility] Administration Piperacillin Sod/Tazobactam 50 mls @ 100 mls/hr 11/27/18 18:00 11/28/18 10:15 Sod 3.375 gm/ Dextrose IVPB 100 mls/hr Q8H-IV [facility] Administration Protocol Sodium Chloride 1,000 mls @ 60 mls/hr 11/27/18 16:21 11/28/18 10:17 Normal Saline - IV 60 mls/hr ASDIR [facility] Administration Levothyroxine Sodium 125 mcg 11/28/18 07:00 11/28/18 06:36 Synthroid - PO 125 mcg DAILY@0700 [facility] Administration Mirtazapine 7.5 mg 11/27/18 22:00 11/27/18 21:08 Remeron - PO 7.5 mg HS [facility] Administration Polyethylene Glycol 17 gm 11/28/18 10:00 11/28/18 09:40 Miralax (For Daily Use) - PO 17 gm DAILY [facility] Administration Warfarin Sodium 3 mg 11/27/18 18:00 11/27/18 18:43 Coumadin - PO 3 mg DAILY@1800 [facility] Administration ASSESSMENT/PLAN: 88 year old female from [facility], with PMH of Dementia, Atrial Fibrillation, s/ p PPM, CAD, Hypothyroidism, DM 2, Hx intestinal obstruction sec to Diverticulitis (s/p colostomy reversal), GERD, Vitmain D Deficiency, presents from [place] after noted to have AMS, SOB, and desaturation to 85% on RA. 1. Acute Hypoxic respiratory Failure and Severe Sepsis secondary to UTI + L sided Pneumonia Leukocytosis improving - WBC dropped slightly to 21 from 24 Urine legionella/Sputum Cx requested. Urine Cx - positive for GNB Received Vanc/Zosyn in ED. Will continue Zosyn - ID following Lactate levels trending down. Supplemental O2 as needed. Possible aspiration, Swallow eval performed, diet recommendations appreciated. No need for steroid - no history of Asthma/COPD and no wheeze - Solumedrol discontinued. 2. L sided effusion on CXR ?parapneumonic, unknown whether she has hx of CHF. BNP 884 Echo requested. Evaluated by Cardiology 3. Acute Encephalopathy atop baseline severe Dementia - baseline mental status unclear. Will send TSH 0.54/B12 level 772/RPR non-reactive. CT Brain findings consistent with Alzheimer's Dementia, no acute intracranial findings. 4. Atrial Fibrillation - continue Amiodarone and Coumadin. INR therapeutic at 2.64 5. Alzheimer's Dementia - continue Mirtazapine 6. Hypothyroidism - Continue Levothyroxine. 7. DM 2 - does not appear to be on home anti-hyperglycemics, possibly diet controlled. DVT Px - on Coumadin
[2018-11-28] MEDS: WARFARIN NA 3 MG TABLET PO SCH (17:13)
[2018-11-28 18:02] LABS: INR 3.27 (0.83-1.09); PROTHROMBIN TIME (PATIENT) 39.1 SEC (9.7-13.0)
[2018-11-28 18:05] LABS: ACTIVATED PTT 41.6 SECONDS (25.2-36.5)
[2018-11-28] MEDS ORDERED: ACETAMINOPHEN 325 MG TABLET (FP) PO ONE (20:30)
[2018-11-28] MEDS ORDERED: VANCOMYCIN 1 GM PREMIX - 1 GM/200 ML BAG IVPB SCH (22:00)
--- NOTE | 2018-11-28 22:34 | PN ---
Progress Note, Physician Chief Complaint: Events noted Dyspnea intermittently Confused with underlying dementia History of Present Illness: Patient was seen and examined. Awake. Chart was reviewed - Current Medication List Current Medications: Active Medications Amiodarone HCl (Cordarone -) 200 mg PO DAILY [facility] Last Admin: 11/28/18 09:39 Dose: 200 mg Calcium Carbonate/Cholecalciferol (Os-Sebas 500+D -) 1 tab PO DAILY [facility] Last Admin: 11/28/18 09:39 Dose: 1 tab Docusate Sodium (Colace -) 200 mg PO HS [facility] Last Admin: 11/27/18 21:08 Dose: 200 mg Ergocalciferol (Drisdol Oral Solution -) 8,000 units PO DAILY [facility] Last Admin: 11/28/18 13:18 Dose: 8,000 units Guaifenesin (Robitussin -) 5 ml PO BID [facility] Last Admin: 11/28/18 09:41 Dose: 5 ml Piperacillin Sod/Tazobactam (Sod 3.375 gm/ Dextrose) 50 mls @ 100 mls/hr IVPB Q8H-IV [facility]; Protocol Last Admin: 11/28/18 17:13 Dose: 100 mls/hr Levothyroxine Sodium (Synthroid -) 125 mcg PO DAILY@0700 [facility] Last Admin: 11/28/18 06:36 Dose: 125 mcg Mirtazapine (Remeron -) 7.5 mg PO HS [facility] Last Admin: 11/27/18 21:08 Dose: 7.5 mg Polyethylene Glycol (Miralax (For Daily Use) -) 17 gm PO DAILY [facility] Last Admin: 11/28/18 09:40 Dose: 17 gm Warfarin Sodium (Coumadin -) 3 mg PO DAILY@1800 [facility] Last Admin: 11/28/18 17:13 Dose: 3 mg - Objective Vital Signs: Vital Signs Temperature 100.9 F H 11/28/18 19:40 Pulse Rate 95 H 11/28/18 19:40 Respiratory Rate 19 11/28/18 19:40 Blood Pressure 148/72 11/28/18 19:40 O2 Sat by Pulse Oximetry (%) 97 11/28/18 09:00 Neck: Yes: Supple Cardiovascular: Yes: Regular Rate and Rhythm, S1, S2 Respiratory: Yes: Diminished Gastrointestinal: Yes: Normal Bowel Sounds, Soft. 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 (2) Hypothyroidism Code(s): E03.9 - HYPOTHYROIDISM, UNSPECIFIED Qualifiers: Hypothyroidism type: unspecified Qualified Code(s): E03.9 - Hypothyroidism , unspecified (3) Lactic acidemia Code(s): E87.2 - ACIDOSIS (4) Pacemaker Code(s): Z95.0 - PRESENCE OF CARDIAC PACEMAKER (5) Paroxysmal atrial fibrillation Code(s): I48.0 - PAROXYSMAL ATRIAL FIBRILLATION (6) Pneumonia Code(s): J18.9 - PNEUMONIA, UNSPECIFIED ORGANISM Qualifiers: Pneumonia type: due to unspecified organism (7) Sepsis Code(s): A41.9 - SEPSIS, UNSPECIFIED ORGANISM (8) Sick sinus syndrome Code(s): I49.5 - SICK SINUS SYNDROME Assessment/Plan 1. Acute hypoxic respiratory failure 2. Pneumonia 3. Toxic metabolic encephelopathy with underlying dementia 4. PAF 5. Sick sinus syndrome s/p PPM 5. Hypothyroidism 6. Lactic acidosis PLAN: 1. Empiric antibiotic 2. Amiodarone 200 mg QD and Coumadin per INR with caution 3. Consider beta yaneth as tolerated Supportive care Shaquille Pizarro MD
[2018-11-28 22:35] VITALS: BMI 25.2
[2018-11-28] MEDS: DOCUSATE SODIUM 100 MG CAPSULE (FP) PO SCH (22:44)
[2018-11-28] MEDS: MIRTAZAPINE 15 MG TABLET (FP) PO SCH (22:44)
[2018-11-29] MEDS ORDERED: PIPERACILLIN/TAZOBACTAM 3.375 GM VIAL IVPB ONE ×3 (01:12→18:53)
[2018-11-29] MEDS ORDERED: DEXTROSE 5%-WATER - 50 ML IVPB ONE ×3 (01:13→18:53)
[2018-11-29] MEDS: PIPERACILLIN/TAZOB 3.375 GM 3.375 GM in DEXTROSE 5%-WATER - 50 ML IVPB SCH ×3 (01:23→19:00)
[2018-11-29 07:07] LABS: BASO % 0.2 % (0-2.0); EOS % 0.1 % (0-4.5); HEMATOCRIT 28.6 % (32.4-45.2); HEMOGLOBIN 10.7 GM/dL (10.7-15.3); LYMPH % 14.4 % (8-40); MCH 39.4 pg (25.7-33.7); MCHC 37.3 g/dl (32.0-36.0); MEAN CELL VOLUME 105.7 fl (80-96); MEAN PLT VOLUME 9.1 fl (7.5-11.1); MONO % 7.1 % (3.8-10.2); NEUT % 78.2 % (42.8-82.8); PLATELET COUNT 208 K/MM3 (134-434); WHITE BLOOD COUNT 11.8 K/mm3 (4.0-10.0)
[2018-11-29] MEDS: LEVOTHYROXINE NA 125 MCG TABLET (FP) PO SCH (07:19)
[2018-11-29 07:31] LABS: INR 3.56 (0.83-1.09); PROTHROMBIN TIME (PATIENT) 42.5 SEC (9.7-13.0)
[2018-11-29 07:34] LABS: ACTIVATED PTT 42.1 SECONDS (25.2-36.5)
[2018-11-29 07:37] LABS: ALBUMIN 2.3 g/dl (3.4-5.0); ALK PHOS 58 U/L (45-117); ANION GAP 7 MMOL/L (8-16); BILIRUBIN,TOTAL 0.8 mg/dL (0.2-1); BLOOD UREA NITROGEN 13 mg/dL (7-18); CALCIUM 7.4 mg/dL (8.5-10.1); CHLORIDE 114 mmol/L (98-107); CO2 25 mmol/L (21-32); CREATININE 0.6 mg/dL (0.55-1.3); GLUCOSE,RANDOM 87 mg/dL (74-106); PHOSPHOROUS 2.4 mg/dL (2.5-4.9); POTASSIUM 3.3 mmol/L (3.5-5.1); SGOT/AST 9 U/L (15-37); SGPT/ALT 13 U/L (13-61); SODIUM 146 mmol/L (136-145); TOT PROT 5.4 g/dl (6.4-8.2)
[2018-11-29] MEDS ORDERED: POTASSIUM PHOSPHATE 15 MM in SODIUM CHLORIDE 250 ML IVPB ONE (08:45)
[2018-11-29] MEDS ORDERED: POTASSIUM CHLORIDE TABS 20 MEQ TABLET.ER (FP) PO ONE (08:45)
[2018-11-29] MEDS ORDERED: PT OWN MED DRAWER 7, Y5N ONE (10:10)
[2018-11-29] MEDS: CALCIUM 500MG/VIT-D 200 UNITS COMBO TABLET (FP) PO SCH (10:17)
[2018-11-29] MEDS: guaiFENesin 200 MG/10 ML 10 ML UNIT-DOSE CUPS PO SCH ×2 (10:18→21:35)
[2018-11-29] MEDS: metoPROLOL SUCCINATE 25 MG TAB.SR.24H (FP) PO SCH (10:18)
[2018-11-29] MEDS: POLYETHYLENE GLYCOL 3350 119 GM BTL PO SCH (10:18)
[2018-11-29] MEDS: AMIODARONE HCL 200 MG TABLET (FP) PO SCH (10:18)
[2018-11-29] MEDS: ERGOCALCIFEROL 8,000 UNITS/ML DROPSBTL PO SCH (10:19)
[2018-11-29 10:43] LABS: ANISOCYTOSIS 1+; MACROCYTOSIS 2+; PLATELET ESTIMATE NORMAL; ROULEAU 1+
--- NOTE | 2018-11-29 16:29 | PN ---
Progress Note, Physician History of Present Illness: Pt is arousable, without distress. Temp of 100.9 yesterday, currently afebrile. - Current Medication List Current Medications: Active Medications Amiodarone HCl (Cordarone -) 200 mg PO DAILY [facility] Last Admin: 11/29/18 10:18 Dose: 200 mg Calcium Carbonate/Cholecalciferol (Os-Sebas 500+D -) 1 tab PO DAILY [facility] Last Admin: 11/29/18 10:17 Dose: 1 tab Docusate Sodium (Colace -) 200 mg PO [facility] Last Admin: 11/28/18 22:44 Dose: 200 mg Ergocalciferol (Drisdol Oral Solution -) 8,000 units PO DAILY [facility] Last Admin: 11/29/18 10:19 Dose: 8,000 units Guaifenesin (Robitussin -) 5 ml PO BID [facility] Last Admin: 11/29/18 10:18 Dose: 5 ml Piperacillin Sod/Tazobactam (Sod 3.375 gm/ Dextrose) 50 mls @ 100 mls/hr IVPB Q8H-IV [facility]; Protocol Last Admin: 11/29/18 10:17 Dose: 100 mls/hr Levothyroxine Sodium (Synthroid -) 125 mcg PO DAILY@0700 [facility] Last Admin: 11/29/18 07:19 Dose: 125 mcg Metoprolol Succinate (Toprol Xl -) 12.5 mg PO DAILY [facility] Last Admin: 11/29/18 10:18 Dose: 12.5 mg Mirtazapine (Remeron -) 7.5 mg PO [facility] Last Admin: 11/28/18 22:44 Dose: 7.5 mg Polyethylene Glycol (Miralax (For Daily Use) -) 17 gm PO DAILY [facility] Last Admin: 11/29/18 10:18 Dose: Not Given - Objective Vital Signs: Vital Signs Temperature 98.4 F 11/29/18 13:54 Pulse Rate 73 11/29/18 13:54 Respiratory Rate 19 11/29/18 09:00 Blood Pressure 146/89 11/29/18 13:54 O2 Sat by Pulse Oximetry (%) 94 L 11/29/18 09:00 Constitutional: Yes: No Distress, Calm Cardiovascular: Yes: Regular Rate and Rhythm Respiratory: Yes: Other (decreased BS in Lt base) Gastrointestinal: Yes: Normal Bowel Sounds, Soft Extremities: Yes: WNL Integumentary: Yes: WNL Labs: CBC, BMP 11/29/18 06:00 11/29/18 06:00 INR, PTT INR 3.56 (0.83-1.09) H 11/29/18 06:00 Microbiology 11/27/18 10:15 Urine For Antigen Detection Legionella Antigen - Final 11/27/18 10:15 Urine For Antigen Detection Streptococcus pneumoniae Antigen (M - Final 11/26/18 22:28 Urine - Urine - Catheterized Urine Culture - Final Klebsiella Pneumoniae 11/26/18 22:28 Blood - Peripheral Venous Blood Culture - Preliminary NO GROWTH OBTAINED AFTER 48 HOURS, INCUBATION TO CONTINUE FOR 3 DAYS. 11/26/18 22:28 Blood - Peripheral Venous Blood Culture - Preliminary NO GROWTH OBTAINED AFTER 48 HOURS, INCUBATION TO CONTINUE FOR 3 DAYS. Problem List - Problems (1) Hypothyroidism Code(s): E03.9 - HYPOTHYROIDISM, UNSPECIFIED Qualifiers: Hypothyroidism type: unspecified Qualified Code(s): E03.9 - Hypothyroidism , unspecified (2) Hypoxia Code(s): R09.02 - HYPOXEMIA (3) Lactic acidemia Code(s): E87.2 - ACIDOSIS (4) Leukocytosis Code(s): D72.829 - ELEVATED WHITE BLOOD CELL COUNT, UNSPECIFIED Qualifiers: Leukocytosis type: unspecified Qualified Code(s): D72.829 - Elevated white blood cell count, unspecified (5) Pacemaker Code(s): Z95.0 - PRESENCE OF CARDIAC PACEMAKER (6) Paroxysmal atrial fibrillation Code(s): I48.0 - PAROXYSMAL ATRIAL FIBRILLATION (7) Pneumonia Code(s): J18.9 - PNEUMONIA, UNSPECIFIED ORGANISM Qualifiers: Pneumonia type: due to unspecified organism (8) Sepsis Code(s): A41.9 - SEPSIS, UNSPECIFIED ORGANISM (9) Sick sinus syndrome Code(s): I49.5 - SICK SINUS SYNDROME Assessment/Plan Sepsis HCAP UTI Hypoxia AFIB SSS s/p PPM CAD DM Dementia hypothyroidism -- wbc decreased to 11K -- 99.1 temp early a.m., currently afebrile -- continue antibiotics -- repeat lactic acid, last was 2.4 -- urine culture results noted blood cultures neg. 48 hrs continue monitor vitals
--- NOTE | 2018-11-29 18:02 | PN ---
Progress Note (short form) - Note Progress Note: SUBJECTIVE: Resting comfortably, non-verbal. Unable to participate in medical interview. OBJECTIVE: Afebrile, Hemodynamically Stable. Poorly responsive, awake, alert, disoriented x 3. Last Vital Signs Temp Pulse Resp BP Pulse Ox 98.4 F 73 19 146/89 94 L 11/29/18 13:54 11/29/18 13:54 11/29/18 09:00 11/29/18 13:54 11/29/18 09:00 Heart - S1, S2, soft SM Lungs - L basal crackles Abdomen - soft, non-tender. Bowel Sounds normal Extremities - no edema/calf tenderness Laboratory Results - last 24 hr 11/28/18 11/28/18 11/29/18 07:00 17:34 06:00 WBC 11.8 H RBC 2.70 L Hgb 10.7 Hct 28.6 L MCV 105.7 H MCH 39.4 H D MCHC 37.3 H RDW 13.0 Plt Count 208 MPV 9.1 Absolute Neuts (auto) 9.3 H Neutrophils % 78.2 Lymphocytes % 14.4 D Monocytes % 7.1 Eosinophils % 0.1 D Basophils % 0.2 Nucleated RBC % 0 Hypochromia 1+ Platelet Estimate Normal Polychromasia 1+ Poikilocytosis 1+ Anisocytosis 1+ Microcytosis 0 Macrocytosis 2+ Rouleaux 1+ PT with INR 39.10 H INR 3.27 H PTT (Actin FS) 41.6 H Sodium Potassium Chloride Carbon Dioxide Anion Gap BUN Creatinine Creat Clearance w eGFR Random Glucose Hemoglobin A1c % 5.5 Calcium Phosphorus Magnesium Total Bilirubin AST ALT Alkaline Phosphatase Total Protein Albumin Serum Folate 11/29/18 11/29/18 06:00 06:00 WBC RBC Hgb Hct MCV MCH MCHC RDW Plt Count MPV Absolute Neuts (auto) Neutrophils % Lymphocytes % Monocytes % Eosinophils % Basophils % Nucleated RBC % Hypochromia Platelet Estimate Polychromasia Poikilocytosis Anisocytosis Microcytosis Macrocytosis Rouleaux PT with INR 42.50 H INR 3.56 H PTT (Actin FS) 42.1 H Sodium 146 H Potassium 3.3 L Chloride 114 H Carbon Dioxide 25 Anion Gap 7 L BUN 13 Creatinine 0.6 Creat Clearance w eGFR 94.35 Random Glucose 87 Hemoglobin A1c % Calcium 7.4 L Phosphorus 2.4 L Magnesium 2.0 Total Bilirubin 0.8 AST 9 L ALT 13 Alkaline Phosphatase 58 Total Protein 5.4 L Albumin 2.3 L Serum Folate 13 Current Medications Generic Name Dose Route Start Last Admin Trade Name Mike PRN Reason Stop Dose Admin Amiodarone HCl 200 mg 11/28/18 10:00 11/29/18 10:18 Cordarone - PO 200 mg DAILY [facility] Administration Calcium Carbonate/Cholecalciferol 1 tab 11/28/18 10:00 11/29/18 10:17 Os-Sebas 500+D - PO 1 tab DAILY [facility] Administration Docusate Sodium 200 mg 11/27/18 22:00 11/28/18 22:44 Colace - PO 200 mg HS [facility]IA Administration Ergocalciferol 8,000 units 11/28/18 10:00 11/29/18 10:19 Drisdol Oral Solution - PO 8,000 units DAILY [facility] Administration Guaifenesin 5 ml 11/27/18 22:00 11/29/18 10:18 Robitussin - PO 5 ml BID [facility] Administration Piperacillin Sod/Tazobactam 50 mls @ 100 mls/hr 11/27/18 18:00 11/29/18 10:17 Sod 3.375 gm/ Dextrose IVPB 100 mls/hr Q8H-IV [facility] Administration Protocol Levothyroxine Sodium 125 mcg 11/28/18 07:00 11/29/18 07:19 Synthroid - PO 125 mcg DAILY@0700 [facility] Administration Metoprolol Succinate 12.5 mg 11/29/18 10:00 11/29/18 10:18 Toprol Xl - PO 12.5 mg DAILY [facility] Administration Mirtazapine 7.5 mg 11/27/18 22:00 11/28/18 22:44 Remeron - PO 7.5 mg HS [facility] Administration Polyethylene Glycol 17 gm 11/28/18 10:00 11/29/18 10:18 Miralax (For Daily Use) - PO Not Given DAILY [facility] ASSESSMENT/PLAN: 88 year old female from [facility], with PMH of Dementia, Atrial Fibrillation, s/ p PPM, CAD, Hypothyroidism, DM 2, Hx intestinal obstruction sec to Diverticulitis (s/p colostomy reversal), GERD, Vitmain D Deficiency, presents from [place] after noted to have AMS, SOB, and desaturation to 85% on RA. 1. Acute Hypoxic respiratory Failure and Severe Sepsis secondary to UTI + L sided Pneumonia Leukocytosis improving - WBC dropped from 24 to 11.8 Urine legionella negative. Urine Cx - Klebsiella. Received Vanc/Zosyn in ED. Continued on Zosyn - ID following Lactate levels trended down. Wean off Supplemental O2. Possible aspiration, Swallow eval performed, diet recommendations appreciated. No need for steroid - no history of Asthma/COPD and no wheeze - Solumedrol discontinued. 2. L sided effusion on CXR ?parapneumonic, unknown whether she has hx of CHF. BNP 884 Echo requested. Cardiology following 3. Acute Encephalopathy atop baseline severe Dementia - baseline mental status unclear. TSH 0.54/B12 level 772/RPR non-reactive. CT Brain findings consistent with Alzheimer's Dementia, no acute intracranial findings. 4. Atrial Fibrillation, SSS s/p PPM - continue Amiodarone. INR supratherapeutic at 3.56 - no bruising/bleeding Coumadin held, repeat INR in AM. 5. Alzheimer's Dementia - continue Mirtazapine 6. Hypothyroidism - Continue Levothyroxine. 7. DM 2 - diet controlled, A1C 5.5. Will DC Novolog. 8. Macrocytosis - B12 level normal. Folate level pending. 9. Hypokalemia/Hypophosphatemia - repleted. DVT Px - on Coumadin Visit type - Emergency Visit Emergency Visit: Yes ED Registration Date: 11/26/18 Care time: The patient presented to the Emergency Department on the above date and was hospitalized for further evaluation of their emergent condition. - New Patient This patient is new to me today: No - Critical Care Critical Care patient: No - Discharge Referral Referred to [facility] Med P.C.: No
[2018-11-29] MEDS: MIRTAZAPINE 15 MG TABLET (FP) PO SCH (21:35)
[2018-11-29] MEDS: DOCUSATE SODIUM 100 MG CAPSULE (FP) PO SCH (21:36)
[2018-11-30] MEDS ORDERED: DEXTROSE 5%-WATER - 50 ML IVPB ONE ×3 (02:34→16:49)
[2018-11-30] MEDS ORDERED: PIPERACILLIN/TAZOBACTAM 3.375 GM VIAL IVPB ONE ×3 (02:34→16:49)
[2018-11-30] MEDS: PIPERACILLIN/TAZOB 3.375 GM 3.375 GM in DEXTROSE 5%-WATER - 50 ML IVPB SCH ×4 (02:44→17:08)
[2018-11-30 05:16] VITALS: TEMP 98.7
[2018-11-30] MEDS: LEVOTHYROXINE NA 125 MCG TABLET (FP) PO SCH (06:29)
[2018-11-30 08:42] LABS: ANION GAP 7 MMOL/L (8-16); BLOOD UREA NITROGEN 8 mg/dL (7-18); CALCIUM 7.3 mg/dL (8.5-10.1); CHLORIDE 111 mmol/L (98-107); CO2 25 mmol/L (21-32); CREATININE 0.6 mg/dL (0.55-1.3); GLUCOSE,RANDOM 150 mg/dL (74-106); PHOSPHOROUS 2.8 mg/dL (2.5-4.9); POTASSIUM 3.7 mmol/L (3.5-5.1); SODIUM 143 mmol/L (136-145)
[2018-11-30 09:10] LABS: BASO % 0.1 % (0-2.0); EOS % 0.1 % (0-4.5); HEMATOCRIT 31.5 % (32.4-45.2); HEMOGLOBIN 11.4 GM/dL (10.7-15.3); LYMPH % 12.5 % (8-40); MCH 37.4 pg (25.7-33.7); MCHC 36.2 g/dl (32.0-36.0); MEAN CELL VOLUME 103.4 fl (80-96); MEAN PLT VOLUME 9.1 fl (7.5-11.1); MONO % 6.9 % (3.8-10.2); NEUT % 80.4 % (42.8-82.8); PLATELET COUNT 225 K/MM3 (134-434); RBC 3.04 M/mm3 (3.60-5.2); WHITE BLOOD COUNT 13.2 K/mm3 (4.0-10.0)
[2018-11-30 09:32] LABS: INR 2.68 (0.83-1.09); PROTHROMBIN TIME (PATIENT) 31.9 SEC (9.7-13.0)
--- NOTE | 2018-11-30 09:56 | PN ---
Progress Note, Physician History of Present Illness: Nonverbal, afebrile. - Current Medication List Current Medications: Active Medications Amiodarone HCl (Cordarone -) 200 mg PO DAILY [facility] Last Admin: 11/29/18 10:18 Dose: 200 mg Calcium Carbonate/Cholecalciferol (Os-Sebas 500+D -) 1 tab PO DAILY [facility] Last Admin: 11/29/18 10:17 Dose: 1 tab Docusate Sodium (Colace -) 200 mg PO [facility] Last Admin: 11/29/18 21:36 Dose: 200 mg Ergocalciferol (Drisdol Oral Solution -) 8,000 units PO DAILY [facility] Last Admin: 11/29/18 10:19 Dose: 8,000 units Guaifenesin (Robitussin -) 5 ml PO BID [facility] Last Admin: 11/29/18 21:35 Dose: 5 ml Piperacillin Sod/Tazobactam (Sod 3.375 gm/ Dextrose) 50 mls @ 100 mls/hr IVPB Q8H-IV [facility]; Protocol Last Admin: 11/30/18 02:44 Dose: 100 mls/hr Levothyroxine Sodium (Synthroid -) 125 mcg PO DAILY@0700 [facility] Last Admin: 11/30/18 06:29 Dose: 125 mcg Metoprolol Succinate (Toprol Xl -) 12.5 mg PO DAILY [facility] Last Admin: 11/29/18 10:18 Dose: 12.5 mg Mirtazapine (Remeron -) 7.5 mg PO [facility] Last Admin: 11/29/18 21:35 Dose: 7.5 mg Polyethylene Glycol (Miralax (For Daily Use) -) 17 gm PO DAILY [facility] Last Admin: 11/29/18 10:18 Dose: Not Given Warfarin Sodium (Coumadin -) 3 mg PO DAILY@1800 [facility] - Objective Vital Signs: Vital Signs Temperature 98.7 F 11/30/18 05:00 Pulse Rate 75 11/30/18 05:00 Respiratory Rate 19 11/29/18 19:59 Blood Pressure 126/58 L 11/30/18 05:00 O2 Sat by Pulse Oximetry (%) 94 L 11/29/18 21:00 Constitutional: Yes: No Distress, Calm, Thin Neck: Yes: Supple Cardiovascular: Yes: Regular Rate and Rhythm Respiratory: Yes: Regular, Diminished, On Nasal O2 Gastrointestinal: Yes: Normal Bowel Sounds, Soft Edema: No Labs: CBC, BMP 11/30/18 07:00 11/30/18 07:00 INR, PTT INR 2.68 (0.83-1.09) H 11/30/18 08:50 Problem List - Problems (1) Paroxysmal atrial fibrillation Code(s): I48.0 - PAROXYSMAL ATRIAL FIBRILLATION (2) Pacemaker Code(s): Z95.0 - PRESENCE OF CARDIAC PACEMAKER (3) Chronic anticoagulation Code(s): Z79.01 - FITNESS ATTENDANT (CURRENT) USE OF ANTICOAGULANTS (4) Hypoxia Code(s): R09.02 - HYPOXEMIA (5) Pneumonia Code(s): J18.9 - PNEUMONIA, UNSPECIFIED ORGANISM Qualifiers: Pneumonia type: due to unspecified organism (6) Sepsis Code(s): A41.9 - SEPSIS, UNSPECIFIED ORGANISM (7) Hypothyroidism Code(s): E03.9 - HYPOTHYROIDISM, UNSPECIFIED Qualifiers: Hypothyroidism type: unspecified Qualified Code(s): E03.9 - Hypothyroidism , unspecified (8) Sick sinus syndrome Code(s): I49.5 - SICK SINUS SYNDROME (9) Leukocytosis Code(s): D72.829 - ELEVATED WHITE BLOOD CELL COUNT, UNSPECIFIED Qualifiers: Leukocytosis type: unspecified Qualified Code(s): D72.829 - Elevated white blood cell count, unspecified Assessment/Plan 1. Acute hypoxic respiratory failure 2. Pneumonia 3. Toxic metabolic encephelopathy with underlying dementia 4. PAF->SR on coumadin with therapeutic INR 5. Sick sinus syndrome s/p PPM 6. Hypothyroidism 7. Lactic acidosis PLAN: 1. Empiric antibiotic course 2. Amiodarone 200 mg QD, Toprol XL 12.5 qd and Coumadin per INR
[2018-11-30] MEDS: AMIODARONE HCL 200 MG TABLET (FP) PO SCH (10:54)
[2018-11-30] MEDS: guaiFENesin 200 MG/10 ML 10 ML UNIT-DOSE CUPS PO SCH (10:54)
[2018-11-30] MEDS: CALCIUM 500MG/VIT-D 200 UNITS COMBO TABLET (FP) PO SCH (10:55)
[2018-11-30] MEDS: ERGOCALCIFEROL 8,000 UNITS/ML DROPSBTL PO SCH (10:55)
[2018-11-30] MEDS: POLYETHYLENE GLYCOL 3350 119 GM BTL PO SCH (10:55)
[2018-11-30] MEDS: metoPROLOL SUCCINATE 25 MG TAB.SR.24H (FP) PO SCH (10:55)
--- NOTE | 2018-11-30 11:03 | PN ---
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 Progress Note: Selected Entries 11/28/18 11/28/18 11/28/18 07:57 10:34 12:22 Breakfast 100% Diet Tolerated Well Fair Lunch 75% Supper Temperature 98.6 F 11/28/18 11/28/18 11/29/18 13:46 19:40 09:00 Breakfast Diet Tolerated Lunch Supper Temperature 97.9 F 100.9 F H 99.4 F 11/29/18 11/29/18 11/29/18 13:54 19:59 20:48 Breakfast 25% Diet Tolerated Lunch 25% Supper 100% Temperature 98.4 F 97.9 F 11/30/18 11/30/18 05:00 10:50 Breakfast 75% Diet Tolerated Fair Lunch Supper Temperature 98.7 F Laboratory Tests 11/29/18 11/30/18 06:00 07:00 WBC 11.8 H 13.2 H On Dys puree /nectar Consider MBS to r/o aspiration, to determine safest diet. Reviewed with ID.
[2018-11-30 11:24] VITALS: BP 112/41; PULSE 79
--- NOTE | 2018-11-30 11:40 | PN ---
Progress Note, Physician History of Present Illness: patient looks sick more lethargic wbc has increased spoke with prem team plan is for modified ba xray swallow - Current Medication List Current Medications: Active Medications Amiodarone HCl (Cordarone -) 200 mg PO DAILY [facility] Last Admin: 11/30/18 10:54 Dose: 200 mg Calcium Carbonate/Cholecalciferol (Os-Sebas 500+D -) 1 tab PO DAILY [facility] Last Admin: 11/30/18 10:55 Dose: 1 tab Docusate Sodium (Colace -) 200 mg PO [facility] Last Admin: 11/29/18 21:36 Dose: 200 mg Ergocalciferol (Drisdol Oral Solution -) 8,000 units PO DAILY [facility] Last Admin: 11/30/18 10:55 Dose: 8,000 units Guaifenesin (Robitussin -) 5 ml PO BID [facility] Last Admin: 11/30/18 10:54 Dose: 5 ml Piperacillin Sod/Tazobactam (Sod 3.375 gm/ Dextrose) 50 mls @ 100 mls/hr IVPB Q8H-IV [facility]; Protocol Last Admin: 11/30/18 10:54 Dose: 100 mls/hr Levothyroxine Sodium (Synthroid -) 125 mcg PO DAILY@0700 [facility] Last Admin: 11/30/18 06:29 Dose: 125 mcg Metoprolol Succinate (Toprol Xl -) 12.5 mg PO DAILY [facility] Last Admin: 11/30/18 10:55 Dose: 12.5 mg Mirtazapine (Remeron -) 7.5 mg PO [facility] Last Admin: 11/29/18 21:35 Dose: 7.5 mg Polyethylene Glycol (Miralax (For Daily Use) -) 17 gm PO DAILY [facility] Last Admin: 11/30/18 10:55 Dose: Not Given Warfarin Sodium (Coumadin -) 3 mg PO DAILY@1800 [facility] - Objective Vital Signs: Vital Signs Temperature 98.7 F 11/30/18 05:00 Pulse Rate 79 11/30/18 10:00 Respiratory Rate 18 11/30/18 10:00 Blood Pressure 112/41 L 11/30/18 10:00 O2 Sat by Pulse Oximetry (%) 93 L 11/30/18 09:00 Constitutional: Yes: Other (lethargic) Cardiovascular: Yes: S1, S2 Respiratory: Yes: Other (ronchi) Gastrointestinal: Yes: Normal Bowel Sounds, Soft Musculoskeletal: Yes: Other Extremities: Yes: WNL Neurological: Yes: Other (lethargic) Labs: CBC, BMP 11/30/18 07:00 11/30/18 07:00 INR, PTT INR 2.68 (0.83-1.09) H 11/30/18 08:50 Assessment/Plan Problem List - Problems (1) Hypothyroidism Code(s): E03.9 - HYPOTHYROIDISM, UNSPECIFIED Qualifiers: Hypothyroidism type: unspecified Qualified Code(s): E03.9 - Hypothyroidism , unspecified (2) Hypoxia Code(s): R09.02 - HYPOXEMIA (3) Lactic acidemia Code(s): E87.2 - ACIDOSIS (4) Leukocytosis Code(s): D72.829 - ELEVATED WHITE BLOOD CELL COUNT, UNSPECIFIED Qualifiers: Leukocytosis type: unspecified Qualified Code(s): D72.829 - Elevated white blood cell count, unspecified (5) Pacemaker Code(s): Z95.0 - PRESENCE OF CARDIAC PACEMAKER (6) Paroxysmal atrial fibrillation Code(s): I48.0 - PAROXYSMAL ATRIAL FIBRILLATION (7) Pneumonia Code(s): J18.9 - PNEUMONIA, UNSPECIFIED ORGANISM Qualifiers: Pneumonia type: due to unspecified organism (8) Sepsis Code(s): A41.9 - SEPSIS, UNSPECIFIED ORGANISM (9) Sick sinus syndrome Code(s): I49.5 - SICK SINUS SYNDROME Assessment/Plan Sepsis HCAP UTI Hypoxia AFIB SSS s/p PPM CAD DM Dementia hypothyroidism plan' continue abx monitor wbc has increased again was awake in the morning now a bit lethargic plan is to do modified ba rest as per the team
--- NOTE | 2018-11-30 12:40 | ECHO ---
Name: RAGHAV WALTERS Exam:Adult Echocardiogram Study Date: 11/30/2018 09:23 AM Age: 88 yrs Reason For Study: elevated bnp sob hypoxia Height: 62 in Weight: 138 lb BSA: 1.6 m2 MMode/2D Measurements & Calculations IVSd: 0.88 cm Ao root diam: 2.9 cm LVIDd: 4.2 cm LVIDs: 3.0 cm LVPWd: 0.82 cm EDV(Teich): 76.4 ml LVOT diam: 2.1 cm ESV(Teich): 36.1 ml Doppler Measurements & Calculations MV E max naveen: 47.4 cm/sec Ao V2 max: 99.1 cm/sec MV A max naveen: 90.3 cm/sec Ao max P.9 mmHg MV E/A: 0.52 Ao V2 mean: 68.7 cm/sec Ao mean P.1 mmHg Ao V2 VTI: 19.4 cm KARTIK(I,D): 2.6 cm2 KARTIK(V,D): 2.7 cm2 LV V1 max P.5 mmHg SV(LVOT): 50.4 ml LV V1 mean P.2 mmHg LV V1 max: 78.7 cm/sec LV V1 mean: 52.2 cm/sec LV V1 VTI: 15.1 cm Med Peak E' Naveen: 5.3 cm/sec Med E/e': 9.0 Lat Peak E' Naveen: 4.7 cm/sec Lat E/e': 10.1 Procedure A complete two-dimensional transthoracic echocardiogram was performed (2D, M-mode, Doppler and color flow Doppler). Left Ventricle The left ventricle is normal in size. Left ventricular systolic function is normal. Ejection Fraction = 55- 60%. Grade I diastolic dysfunction, (abnormal relaxation pattern). Ratio E/E'= 9. No regional wall mo tion abnormalities noted. Right Ventricle The right ventricle is normal size. The right ventricular systolic function is normal. Atria The left atrial size is normal. Right atrial size is normal. Mitral Valve The mitral valve is normal in structure and function. There is mild mitral regurgitation. Tricuspid Valve The tricuspid valve is normal in structure and function. No tricuspid regurgitation. Aortic Valve The aortic valve is normal in structure and function. No aortic regurgitation is present. Pulmonic Valve The pulmonic valve is not well visualized. Great Vessels The aortic root is normal size. Pericardium/Pleura There is no pericardial effusion. Interpretation Summary The left ventricle is normal in size. Left ventricular systolic function is normal. No regional wall motion abnormalities noted. Ejection Fraction = 55-60%. Grade I diastolic dysfunction, (abnormal relaxation pattern). Ratio E/E'= 9 The right ventricular systolic function is normal. The left atrial size is normal. Right atrial size is normal. There is mild mitral regurgitation. There is no pericardial effusion. Previous study is not available for comparison Shaquille Pizarro MD 11/30/2018 12:40 PM
--- NOTE | 2018-11-30 14:17 | PN ---
Teaching Attending Note Name of Resident: Castro Chen ATTENDING PHYSICIAN STATEMENT I saw and evaluated the patient. I reviewed the resident's note and discussed the case with the resident. I agree with the resident's findings and plan as documented. SUBJECTIVE: Resting comfortably, non-verbal. Unable to participate in medical interview. OBJECTIVE: Afebrile, Hemodynamically Stable. Poorly responsive, awake, alert, disoriented x 3. Last Vital Signs Temp Pulse Resp BP Pulse Ox 98.7 F 79 18 112/41 L 93 L 11/30/18 05:00 11/30/18 10:00 11/30/18 10:00 11/30/18 10:00 11/30/18 09:00 Heart - S1, S2, soft SM Lungs - L basal crackles Abdomen - soft, non-tender. Bowel Sounds normal Extremities - no edema/calf tenderness Laboratory Results - last 24 hr 11/30/18 11/30/18 11/30/18 07:00 07:00 07:00 WBC 13.2 H RBC 3.04 L Hgb 11.4 Hct 31.5 L MCV 103.4 H MCH 37.4 H MCHC 36.2 H RDW 13.0 Plt Count 225 MPV 9.1 Absolute Neuts (auto) 10.6 H Neutrophils % 80.4 Lymphocytes % 12.5 Monocytes % 6.9 Eosinophils % 0.1 Basophils % 0.1 Nucleated RBC % 0 PT with INR INR Sodium 143 Potassium 3.7 Chloride 111 H Carbon Dioxide 25 Anion Gap 7 L BUN 8 Creatinine 0.6 Creat Clearance w eGFR 94.35 Random Glucose 150 H Lactic Acid 1.2 Calcium 7.3 L Phosphorus 2.8 11/30/18 08:50 WBC RBC Hgb Hct MCV MCH MCHC RDW Plt Count MPV Absolute Neuts (auto) Neutrophils % Lymphocytes % Monocytes % Eosinophils % Basophils % Nucleated RBC % PT with INR 31.90 H INR 2.68 H Sodium Potassium Chloride Carbon Dioxide Anion Gap BUN Creatinine Creat Clearance w eGFR Random Glucose Lactic Acid Calcium Phosphorus Current Medications Generic Name Dose Route Start Last Admin Trade Name Freq PRN Reason Stop Dose Admin Amiodarone HCl 200 mg 11/28/18 10:00 11/30/18 10:54 Cordarone - PO 200 mg DAILY [facility] Administration Calcium Carbonate/Cholecalciferol 1 tab 11/28/18 10:00 11/30/18 10:55 Os-Sebas 500+D - PO 1 tab DAILY [facility] Administration Docusate Sodium 200 mg 11/27/18 22:00 11/29/18 21:36 Colace - PO 200 mg HS [facility] Administration Ergocalciferol 8,000 units 11/28/18 10:00 11/30/18 10:55 Drisdol Oral Solution - PO 8,000 units DAILY [facility] Administration Guaifenesin 5 ml 11/27/18 22:00 11/30/18 10:54 Robitussin - PO 5 ml BID [facility] Administration Piperacillin Sod/Tazobactam 50 mls @ 100 mls/hr 11/27/18 18:00 11/30/18 10:54 Sod 3.375 gm/ Dextrose IVPB 100 mls/hr Q8H-IV [facility] Administration Protocol Levothyroxine Sodium 125 mcg 11/28/18 07:00 11/30/18 06:29 Synthroid - PO 125 mcg DAILY@0700 [facility] Administration Metoprolol Succinate 12.5 mg 11/29/18 10:00 11/30/18 10:55 Toprol Xl - PO 12.5 mg DAILY [facility] Administration Mirtazapine 7.5 mg 11/27/18 22:00 11/29/18 21:35 Remeron - PO 7.5 mg HS [facility] Administration Polyethylene Glycol 17 gm 11/28/18 10:00 11/30/18 10:55 Miralax (For Daily Use) - PO Not Given DAILY [facility] Warfarin Sodium 3 mg 11/30/18 18:00 Coumadin - PO DAILY@1800 [facility] ASSESSMENT/PLAN: 88 year old female from [facility], with PMH of Dementia, Atrial Fibrillation, s/ p PPM, CAD, Hypothyroidism, DM 2, Hx intestinal obstruction sec to Diverticulitis (s/p colostomy reversal), GERD, Vitmain D Deficiency, presents from [place] after noted to have AMS, SOB, and desaturation to 85% on RA. 1. Acute Hypoxic respiratory Failure and Severe Sepsis secondary to UTI + L sided Pneumonia - resolved. Possible aspiration, Swallow eval performed, diet recommendations appreciated - for dysphagia puree, honey thick liquids in teaspoon. Urine Cx - Klebsiella, sens to Ceftriaxone, Zosyn. Received Vanc/Zosyn in ED. Continued on Zosyn - can now transition to Cephalosporin for 3 additional days. Urine legionella negative. Lactate levels normalized. Wean off Supplemental O2. No need for steroid - no history of Asthma/COPD and no wheeze - Solumedrol discontinued. 2. L sided effusion on CXR ?parapneumonic, Chronic Diastolic CHF on Echo. BNP 884 Echo - Normal EF, Grade 1 diastolic dysfunction Cardiology following 3. Acute Encephalopathy atop baseline severe Dementia - baseline mental status unclear. TSH 0.54/B12 level 772/RPR non-reactive. CT Brain findings consistent with Alzheimer's Dementia, no acute intracranial findings. 4. Atrial Fibrillation, SSS s/p PPM - continue Amiodarone. INR 2.6 - resume Couamdin. 5. Alzheimer's Dementia - continue Mirtazapine 6. Hypothyroidism - Continue Levothyroxine. 7. DM 2 - diet controlled, A1C 5.5. Novolog discontinued. 8. Macrocytosis - B12 level normal. Folate level 13. For out-patient Hematology eval. 9. Hypokalemia/Hypophosphatemia - repleted. DVT Px - on Coumadin
--- NOTE | 2018-11-30 15:33 | DS ---
Physical Exam: SUBJECTIVE: Patient seen and examined OBJECTIVE: Vital Signs Period Temp Pulse Resp BP Sys/Madrid Pulse Ox Last 24 Hr 97.9 F-98.7 F 75-91 18-19 112-148/41-58 93-94 PHYSICAL EXAM GENERAL: The patient is awake, alert, and fully oriented, in no acute distress. HEAD: Normal with no signs of trauma. EYES: PERRL, extraocular movements intact, sclera anicteric, conjunctiva clear. ENT: Ears normal, nares patent, oropharynx clear without exudates, moist mucous membranes. NECK: Trachea midline, full range of motion, supple. LUNGS: Breath sounds equal, clear to auscultation bilaterally, no wheezes, no crackles, no accessory muscle use. HEART: Regular rate and rhythm, S1, S2 without murmur, rub or gallop. ABDOMEN: Soft, nontender, nondistended, normoactive bowel sounds, no guarding, no rebound, no hepatosplenomegaly, no masses. EXTREMITIES: 2+ pulses, warm, well-perfused, no edema. NEUROLOGICAL: Cranial nerves II through XII grossly intact. Normal speech, gait not observed. PSYCH: Normal mood, normal affect. SKIN: Warm, dry, normal turgor, no rashes or lesions noted. LABS Laboratory Results - last 24 hr 11/30/18 11/30/18 11/30/18 07:00 07:00 07:00 WBC 13.2 H RBC 3.04 L Hgb 11.4 Hct 31.5 L MCV 103.4 H MCH 37.4 H MCHC 36.2 H RDW 13.0 Plt Count 225 MPV 9.1 Absolute Neuts (auto) 10.6 H Neutrophils % 80.4 Lymphocytes % 12.5 Monocytes % 6.9 Eosinophils % 0.1 Basophils % 0.1 Nucleated RBC % 0 PT with INR INR Sodium 143 Potassium 3.7 Chloride 111 H Carbon Dioxide 25 Anion Gap 7 L BUN 8 Creatinine 0.6 Creat Clearance w eGFR 94.35 Random Glucose 150 H Lactic Acid 1.2 Calcium 7.3 L Phosphorus 2.8 11/30/18 08:50 WBC RBC Hgb Hct MCV MCH MCHC RDW Plt Count MPV Absolute Neuts (auto) Neutrophils % Lymphocytes % Monocytes % Eosinophils % Basophils % Nucleated RBC % PT with INR 31.90 H INR 2.68 H Sodium Potassium Chloride Carbon Dioxide Anion Gap BUN Creatinine Creat Clearance w eGFR Random Glucose Lactic Acid Calcium Phosphorus HOSPITAL COURSE: Date of Admission:11/26/18 Date of Discharge: 11/30/18 Discharge Summary Reason For Visit: LEUKOCYTOSIS, HYPOXIA, SEPSIS, PNEUMONIA Current Active Problems Chronic anticoagulation (Acute) Hypothyroidism (Acute) Hypoxia (Acute) Lactic acidemia (Acute) Leukocytosis (Acute) Pacemaker (Acute) Paroxysmal atrial fibrillation (Acute) Pneumonia (Acute) Sepsis (Acute) Sick sinus syndrome (Acute) Condition: Stable - Instructions Diet, Activity, Other Instructions: You came in for a UTI and pneumonia We treated you with antibiotics Please take Ceftin 500mg ONCE in the morning and then again ONCE in the evening for 3 days to complete your antibiotic course. Please resume your other medications as prescribed. We have refilled your prescription for Docusate, for constipation. Please continue a Dysphagia Puree diet, nectar thick to be fed by spoon. Please only feed Pt. when she is awake and alert. Please follow up with your PCP, Dr. Bowser within 1 week, and discuss having a feeding tube placed if that is consistent with your wishes and if aspiration becomes more frequent. Please follow up with Dr. No, Grazing Aide, for an abnormality with your red blood cells (MCV:103), within 1 week. Please return to the ED if you are having fevers, chills, abdominal pain, shortness of breath, chest pain or any concerning symptoms. Referrals: Andi No MD [Staff Physician] - 1 Week Lester Bowser MD [Primary Care Provider] - 1 Week Disposition: RETIREMENT FACILITY - Home Medications Comprehensive Discharge Medication List: Ambulatory Orders Acetaminophen [Tylenol] 650 mg PO BID PRN 11/26/18 Albuterol 2.5/Ipratropium 0.5 [Duoneb -] 1 neb IH QID PRN 11/26/18 Amiodarone HCl [Cordarone -] 200 mg PO DAILY 11/26/18 Calcium Carbonate/Vitamin D3 [Calcium 500 mg Chewable Tablet] 1 each PO DAILY Ergocalciferol [Drisdol -] 8,000 units PO DAILY 11/26/18 Levothyroxine [Synthroid -] 125 mcg PO DAILY 11/26/18 Mirtazapine [Remeron -] 7.5 mg PO HS 11/26/18 Polyethylene Glycol 3350 [Miralax 119 gm Btl -] 17 gm PO Q2D 11/26/18 Warfarin Sodium [Coumadin] 3 mg PO HS 11/26/18 Cefuroxime Axetil [Ceftin -] 500 mg PO Q12H 3 Days #6 tablet 11/30/18 Docusate Sodium 200 mg PO HS #30 capsule 11/30/18 - Discharge Referral Referred to [facility] No
[2018-11-30] MEDS: WARFARIN NA 3 MG TABLET PO SCH ×2 (16:58→17:08)
== END 2018-11-30 18:08 | DRG 871 ==
LOC: SUPCPDRO 22:00 → JER 22:00 → JERBED 23:11 → J4W 11-27 04:20 → J6S 11-27 22:49
PROVIDERS: ADMIT Internal Medicine
DX: A41.9 Sepsis, unspecified organism (principal); J18.9 Pneumonia, unspecified organism; J96.01 Acute respiratory failure with hypoxia; G92 Toxic encephalopathy; J90 Pleural effusion, not elsewhere classified; E46 Unspecified protein-calorie malnutrition; E87.2 Acidosis; N39.0 Urinary tract infection, site not specified; E88.09 Other disorders of plasma-protein metabolism, not elsewhere classified; I48.0 Paroxysmal atrial fibrillation; G30.9 Alzheimer's disease, unspecified; F02.80 Dementia in other diseases classified elsewhere, unspecified severity, without behavioral disturbance, psychotic disturbance, mood disturbance, and anxiety; E03.9 Hypothyroidism, unspecified; E87.6 Hypokalemia; E83.39 Other disorders of phosphorus metabolism; I25.10 Atherosclerotic heart disease of native coronary artery without angina pectoris; D72.829 Elevated white blood cell count, unspecified; E11.9 Type 2 diabetes mellitus without complications
CPT/HCPCS: 36415; 70450-TC; 71045-TC-FY; 74230-TC-FY; 80048; 80053; 81003; 82550; 82553; 82607; 82746; 82803; 83036; 83605; 83735; 83880; 84100; 84443; 84484; 85025; 85610; 85730; 86593; 87040; 87086; 87186; 87899; 92611-GN; 93005; 93010; 93306-TC; 97161-GP; 99284-25; J0131; J7030